=== PATIENT | male | born 1935 | race African-American/Black ===

== ENCOUNTER → 2018-09-05 | Outpatient (CLI) | payer OTHER ==
[2015-07-03 11:59] VITALS: BP 147/86
[~2018-09-05] MED LIST: LOSA100T14 PO; MELO7.5T29 PO
--- NOTE | 2018-09-05 15:09 | CARD ---
MR#: [id number] Date of Study: 09/05/2018 Ordering Physician: CHARLES DUFF, Referring Physician: CHARLES DUFF, Tech: Allie Buitrago APPROVED REPORT EXAM: Two-dimensional and M-mode echocardiogram with Doppler and color Doppler. Other Information Quality : AverageHR: 72bpm INDICATION Atrial Fibrillation RISK FACTORS Hypertension Hyperlipidemia 2D DIMENSIONS RVDd2.5 (2.9-3.5cm)Left Atrium(2D)3.4 (1.6-4.0cm) IVSd1.2 (0.7-1.1cm)Aortic Root(2D)3.4 (2.0-3.7cm) LVDd5.6 (3.9-5.9cm)LVOT Diameter2.3 (1.8-2.4cm) PWd1.2 (0.7-1.1cm)LVDs4.5 (2.5-4.0cm) FS (%) 19.0 %SV59.4 ml LVEF(%)38.8 (>50%) Aortic Valve AoV Peak Eulogio.134.9cm/sAoV VTI20.6cm AO Peak GR.7.3mmHgLVOT Peak Eulogio.72.4cm/s LVOT VTI 11.93cmAO Mean GR.3mmHg SANAM (VMAX)1.29wa9DST (VTI)2.38cm2 AI P 1/2 [id number] Pulmonary Valve PV Peak Iozfawpn64.6cm/sPV Peak Grad.3mmHg Tricuspid Valve TR P. [id number]/sRAP [id number] TR Peak Gr.76qeVlRPST04soWc Pulmonary Vein S1 Gdeqkryn99.8cm/sD2 Djhilwea97.2cm/s PVa [id number] LEFT VENTRICLE The left ventricle is normal size. There is borderline to mild concentric left ventricular hypertroph y. The systolic function is mildly impaired. The Ejection Fraction is 40-45%. Difficult to estimate d ue to afib. There is global hypokinesis of the left ventricle. Tissue Doppler imaging reveals moderat e left ventricular diastolic dysfunction. RIGHT VENTRICLE The right ventricle is mildly dilated. There is normal right ventricular wall thickness. The right ve ntricular systolic function is normal. ATRIA The left atrium is mildly dilated. The right atrium is mildly dilated. The interatrial septum is inta ct with no evidence for an atrial septal defect or patent foramen ovale as noted on 2-D or Doppler im aging. AORTIC VALVE The aortic valve is normal in structure and function. Doppler and Color Flow revealed trace aortic re gurgitation. There is no significant aortic valvular stenosis. MITRAL VALVE The mitral valve is normal in structure and function. There is no mitral valve stenosis. Doppler and Color-flow revealed trace mitral regurgitation. TRICUSPID VALVE The tricuspid valve is not well visualized. Doppler and Color Flow revealed trace to mild tricuspid r egurgitation. There is no tricuspid valve stenosis. PULMONIC VALVE The pulmonic valve is not well visualized. Doppler and Color Flow revealed trace pulmonic valvular re gurgitation. GREAT VESSELS The aortic root is normal in size. The IVC is dilated and collapses <50% with inspiration. PERICARDIAL EFFUSION There is no evidence of significant pericardial effusion. Critical Notification Critical Value: No <Conclusion> The systolic function is mildly impaired. The Ejection Fraction is 40-45%. Difficult to estimate due to afib. There is global hypokinesis of the left ventricle. The right ventricle is mildly dilated. Signed by : Charles Duff, Electronically Approved : 09/05/2018 15:08:49
== END | disposition home or self-care (01) ==
LOC: ECHO 12:40
PROVIDERS: ATTEND Internal Medicine Cardiovascular Disease
DX: I11.9 Hypertensive heart disease without heart failure (principal); I48.91 Unspecified atrial fibrillation; E78.5 Hyperlipidemia, unspecified; M19.90 Unspecified osteoarthritis, unspecified site; Z96.641 Presence of right artificial hip joint; Z96.653 Presence of artificial knee joint, bilateral; M54.9 Dorsalgia, unspecified; G89.29 Other chronic pain; R22.43 Localized swelling, mass and lump, lower limb, bilateral
CPT/HCPCS: 93306; 93970

== ENCOUNTER → 2019-05-02 | Outpatient (CLI) | payer OTHER ==
[2015-07-03 11:59] VITALS: BP 147/86
[~2019-05-02] MED LIST changes: +IOHEXOL 240 MG/ML 50ML VIAL. PO ONE; +IOHEXOL 300 MG/ML 100ML VIAL. IV ONE
[2019-05-02 10:22] LABS: CREATININE 1.4 mg/dL (0.7-1.3); GFR 58.6
--- NOTE | 2019-05-02 13:10 | RAD ---
PQRS Compliance statement: One or more of the following individualized dose reduction techniques were utilized for this examination: 1. Automated exposure control. 2. Adjustment of the mA and/or kV according to patient size. 3. Use of iterative reconstruction technique. Indication:Ventral hernia. TECHNIQUE: CT abdomen and pelvis with IV contrast with multiplanar reformats. COMPARISON: None FINDINGS: Heart is normal in size. No pericardial or pleural effusion. Motion artifact is seen in the lung bases limiting optimal evaluation. Liver, spleen, pancreas, adrenals within normal limits. Gallstone noted. No pericholecystic fluid or gallbladder wall thickening. Bilateral simple appearing renal cysts are seen, the largest in the right kidney measuring 9.5 x 8.3 cm and on the left side measuring 4.8 x 2.6 cm. Couple of nonobstructing left renal stones are seen, the largest measuring 3 mm. Right parapelvic cysts are seen. No enlarged retroperitoneal or pelvic adenopathy. No free pelvic fluid or ascites. Status post prostatectomy and evidence of bilateral pelvic sidewall lymph node dissection. Descending colon diverticulosis. No bowel obstruction. Urinary bladder is suboptimally evaluated due to streak artifact from pelvic metallic surgical clips. Epigastric ventral omental fat-containing midline abdominal wall hernia with neck of the hernia measuring 3.4 cm. The hernia sac approximately measures 10.0 x 4.0 cm. Severe left hip joint osteoarthritis. No suspicious bony lesion. IMPRESSION: 1. Midline ventral abdominal wall hernia containing omental fat. 2. Nonobstructing left renal stones. Bilateral simple appearing renal cysts. Right-sided pelvocaliectasis versus parapelvic cysts. 3. Cholelithiasis without imaging evidence of acute cholecystitis. Electronically signed by: Drew Norris DO (05/02/2019 1:07 PM) [facility]
== END | disposition home or self-care (01) ==
LOC: CT 09:33
PROVIDERS: ATTEND Specialist
DX: K43.9 Ventral hernia without obstruction or gangrene (principal); K80.20 Calculus of gallbladder without cholecystitis without obstruction; N20.0 Calculus of kidney; K57.30 Diverticulosis of large intestine without perforation or abscess without bleeding; M16.12 Unilateral primary osteoarthritis, left hip
CPT/HCPCS: 36415; 74177; 82565; Q9966; Q9967

== ENCOUNTER 2019-05-25 08:28 | Inpatient (IN) | payer OTHER ==
[~2019-05-25] VITALS: Ht 172.7 cm; Wt 111.1 kg
[~2019-05-25 08:28] MED LIST changes: -IOHEXOL 240 MG/ML 50ML VIAL. PO ONE; -IOHEXOL 300 MG/ML 100ML VIAL. IV ONE
--- NOTE | 2019-05-25 09:06 | PHYS DOC ---
Past Medical History Past Medical History: Cancer, GI Bleed, High Cholesterol, Hypertension Additional Past Medical Histor: PROSTATE CANCER Past Surgical History: Hip Replacement, Knee Replacement Additional Past Surgical Histo: PROSTATECTOMY Alcohol Use: None Drug Use: None Adult General Chief Complaint Chief Complaint: RECTAL BLEED [facility] HPI Patient is a 83 year old male with a history of hypertension, hemorrhoids, GI bleed, A. fib on Prasugel who presents to the ED today complaining of rectal bleeding during bowel movements that began 4 days ago. Patient denies any ab dominal pain, nausea, vomiting, bloody stools. PCP Dr. Ana Beaver Review of Systems Review of Systems Constitutional: Denies fever or chills [] Eyes: Denies change in visual acuity, redness, or eye pain [] HENT: Denies nasal congestion or sore throat [] Respiratory: Denies cough or shortness of breath [] Cardiovascular: No additional information not addressed in HPI [] GI: Reports rectal bleeding. Denies abdominal pain, nausea, vomiting, bloody stools or diarrhea [] : Denies dysuria or hematuria [] Musculoskeletal: Denies back pain or joint pain [] Integument: Denies rash or skin lesions [] Neurologic: Denies headache, focal weakness or sensory changes [] All other systems were reviewed and found to be within normal limits, except as documented in this note. Current Medications Current Medications Current Medications Medications (Trade) Dose Ordered Sig/Joseph Start Time Stop Time Status Last Admin Dose Admin Info (CONTRAST GIVEN -- Rx MONITORING) 1 each PRN DAILY PRN 05/25/19 09:45 05/27/19 09:44 Iohexol (Omnipaque 300 Mg/ml) 60 ml 1X ONCE 05/25/19 10:00 05/25/19 10:01 DC 05/25/19 09:41 60 ML Pantoprazole Sodium (PROTONIX VIAL for IV PUSH) 40 mg 1X ONCE 05/25/19 09:15 05/25/19 09:16 DC 05/25/19 09:14 40 MG Allergies Allergies Allergies Coded Allergies Type Severity Reaction Last Updated Verified No Known Drug Allergies 07/03/15 No Physical Exam Physical Exam Constitutional: Well developed, well nourished, no acute distress, non-toxic appearance. [] HENT: Normocephalic, atraumatic, bilateral external ears normal, oropharynx moist, no oral exudates, nose normal. [] Eyes: PERRLA, EOMI, conjunctiva normal, no discharge. [] Neck: Normal range of motion, no tenderness, supple, no stridor. [] Cardiovascular:Heart rate regular rhythm, no murmur [] Lungs & Thorax: Bilateral breath sounds clear to auscultation [] Abdomen: Rounded abdomen with a reducible ventral hernia. Bowel sounds normal, soft, no tenderness, no masses, no pulsatile masses. [] Rectal exam External rectum appears normal, no palpable masses in the rectal region. Black tarry stool noted during rectal exam. Skin: Warm, dry, no erythema, no rash. [] Back: No tenderness, no CVA tenderness. [] Extremities: No tenderness, no cyanosis, no clubbing, ROM intact, no edema. [] Neurologic: Alert and oriented X 3, normal motor function, normal sensory function, no focal deficits noted. [] Psychologic: Affect normal, judgement normal, mood normal. [] Current Patient Data Vital Signs Vital Signs Date Time Temp Pulse Resp B/P (MAP) Pulse Ox O2 Delivery O2 Flow Rate FiO2 05/25/19 09:42 63 16 167/80 (109) 05/25/19 09:14 97 05/25/19 08:44 97.9 Room Air 97.9 Lab Values Laboratory Tests Test 05/25/19 08:55 05/25/19 09:05 05/25/19 10:50 Stool Occult Blood Positive (NEG) White Blood Count 5.4 x10^3/uL (4.0-11.0) Red Blood Count 4.46 x10^6/uL (4.30-5.70) Hemoglobin 10.2 g/dL (13.0-17.5) L Hematocrit 31.5 % (39.0-53.0) L Mean Corpuscular Volume 71 fL (79-100) L Mean Corpuscular Hemoglobin 23 pg (25-35) L Mean Corpuscular Hemoglobin Concent 33 g/dL (31-37) Red Cell Distribution Width 16.9 % (11.5-14.5) H Platelet Count 158 x10^3/uL (140-400) Neutrophils (%) (Auto) 67 % (31-73) Lymphocytes (%) (Auto) 20 % (24-48) L Monocytes (%) (Auto) 11 % (0-9) H Eosinophils (%) (Auto) 2 % (0-3) Basophils (%) (Auto) 0 % (0-3) Neutrophils # (Auto) 3.6 x10^3/uL (1.8-7.7) Lymphocytes # (Auto) 1.1 x10^3/uL (1.0-4.8) Monocytes # (Auto) 0.6 x10^3/uL (0.0-1.1) Eosinophils # (Auto) 0.1 x10^3/uL (0.0-0.7) Basophils # (Auto) 0.0 x10^3/uL (0.0-0.2) Platelet Estimate Adequate (ADEQUATE) Hypochromasia Present Anisocytosis Present Ovalocytes Present Prothrombin Time 13.3 SEC (11.7-14.0) Prothrombin Time INR 1.0 (0.8-1.1) Activated Partial Thromboplast Time 31 SEC (24-38) Sodium Level 142 mmol/L (136-145) Potassium Level 4.2 mmol/L (3.5-5.1) Chloride Level 109 mmol/L (98-107) H Carbon Dioxide Level 24 mmol/L (21-32) Anion Gap 9 (6-14) Blood Urea Nitrogen 26 mg/dL (8-26) Creatinine 1.4 mg/dL (0.7-1.3) H Estimated GFR (Cockcroft-Gault) 58.6 BUN/Creatinine Ratio 19 (6-20) Glucose Level 113 mg/dL (70-99) H Calcium Level 8.6 mg/dL (8.5-10.1) Total Bilirubin 0.5 mg/dL (0.2-1.0) Aspartate Amino Transferase (AST) 24 U/L (15-37) Alanine Aminotransferase (ALT) 17 U/L (16-63) Alkaline Phosphatase 78 U/L (46-116) Total Protein 6.8 g/dL (6.4-8.2) Albumin 3.3 g/dL (3.4-5.0) L Albumin/Globulin Ratio 0.9 (1.0-1.7) L Lipase 159 U/L (73-393) Urine Collection Type Unknown Urine Color Yellow Urine Clarity Clear Urine pH 6.5 Urine Specific [place] 1.025 Urine Protein Negative mg/dL (NEG-TRACE) Urine Glucose (UA) Negative mg/dL (NEG) Urine Ketones (Stick) Negative mg/dL (NEG) Urine Blood Negative (NEG) Urine Nitrite Negative (NEG) Urine Bilirubin Negative (NEG) Urine Urobilinogen Dipstick 0.2 mg/dL (0.2 mg/dL) Urine Leukocyte Esterase Negative (NEG) Urine RBC 0 /HPF (0-2) Urine WBC Occ /HPF (0-4) Urine Squamous Epithelial Cells Occ /LPF Urine Bacteria 0 /HPF (0-FEW) Laboratory Tests 05/25/19 09:05 Laboratory Tests 05/25/19 09:05 EKG EKG [] Radiology/Procedures Radiology/Procedures []PROCEDURE: CT ABD PELV W/ IV CONTRST ONLY EXAM: CT Abdomen and Pelvis with IV contrast CLINICAL HISTORY: Rectal bleeding. COMPARISON: none TECHNIQUE: Helical CT of the abdomen and pelvis was performed following the administration of intravenous contrast. Axial, coronal and sagittal reformatted images were generated. PQRS compliance statement - One or more of the following individualized dose reduction techniques were utilized for this study: 1. Automated exposure control 2. Adjustment of the mA and/or kV according to patient size 3. Use of iterative reconstruction technique FINDINGS: Lower chest: Lung bases are clear. Coronary artery calcifications are seen. Abdomen and Pelvis: No focal liver lesion. Small calcified gallstone is seen within the gallbladder. No biliary ductal dilatation. Pancreas is unremarkable. Adrenal glands are normal. Spleen is unremarkable. Symmetric nephrograms. A right upper pole 9.6 cm renal cystic lesion is seen, stable. Additional bilateral renal cysts are seen including parapelvic cysts bilaterally. Nonobstructing 7 mm calculus within the lower pole the left kidney. No hydronephrosis or hydroureter. Bladder wall thickening may be seen with cystitis. Moderate to large volume colonic stool content is seen. Appendix is not convincingly seen. No evidence for bowel obstruction. Colonic diverticula are seen. No evidence for acute diverticulitis. Fat-containing ventral abdominal hernia is seen within the superior aspect of the abdominal wall, neck measures approximately 3 cm in transverse dimension and herniated component measures approximately 10 cm in transverse dimension. Trace mesenteric engorgement. A few intermittent atherosclerotic calcifications are seen. Bones: Changes of right hip arthroplasty are seen. Left hip joint osteoarthritis. SI joint degenerative changes are also seen. Degenerative changes of the spine are seen. IMPRESSION: 1. Colonic diverticula are seen. No evidence for acute diverticulitis. 2. No evidence for bowel obstruction. 3. Bladder wall thickening may be seen with cystitis. 4. Bilateral renal cystic lesions are seen, grossly stable. 5. Prominent midline ventral abdominal hernia containing mesenteric/omental fat with mild mesenteric vascular engorgement, stable. Electronically signed by: Franklin Randall MD (05/25/2019 10:04 AM) [id number] DICTATED and SIGNED BY: FRANKLIN RANDALL MD DATE: 05/25/19 1004 Course & Med Decision Making Course & Med Decision Making Pertinent Labs and Imaging studies reviewed. (See chart for details) This is a 83-year-old male patient on Prasugrel presenting to the ED today with rectal bleeding for 4 days. Bedside fecal occult is positive. Hgb 10.2 HCT 31.5, WBC is normal, CMP with no acute findings. CT of the abdomen and pelvic is negative for any acute findings. Given Protonix IV push on arrival. Protonix iv ordered for admission. Vitals are stable with normal HR and BPs in the 160s/80s GI consulted. [address] Baker who accepted patient for admission. Dragon Disclaimer Dragon Disclaimer This electronic medical record was generated, in whole or in part, using a voice recognition dictation system. Departure Departure Impression: Primary Impression: Rectal bleeding Disposition: ADMITTED INPATIENT Condition: STABLE Referrals: YA BEAVER MD (PCP) DONA ALEJANDRA APRN May 25, 2019 09:06
[2019-05-25 09:13] LABS: FECAL OB PT POSITIVE (NEG)
[2019-05-25 09:15] LABS: BASO % 0 % (0-3); EOS # 0.1 x10^3/uL (0.0-0.7); EOS % 2 % (0-3); HEMATOCRIT 31.5 % (39.0-53.0); HEMOGLOBIN 10.2 g/dL (13.0-17.5); LYMPH # 1.1 x10^3/uL (1.0-4.8); LYMPH % 20 % (24-48); MEAN CORPUSCULAR HEMOGLOBIN 23 pg (25-35); MEAN CORPUSCULAR HGB CONC 33 g/dL (31-37); MEAN CORPUSCULAR VOLUME 71 fL (79-100); MONO # 0.6 x10^3/uL (0.0-1.1); MONO % 11 % (0-9); NEUT # 3.6 x10^3/uL (1.8-7.7); NEUT % 67 % (31-73); PLATELET COUNT 158 x10^3/uL (140-400); RED BLOOD COUNT 4.46 x10^6/uL (4.30-5.70); RED CELL DISTRIBUTION WIDTH 16.9 % (11.5-14.5); WHITE BLOOD COUNT 5.4 x10^3/uL (4.0-11.0)
[2019-05-25] MEDS ORDERED: PANTOPRAZOLE IV PUSH 40 MG VIAL. IVP ONE (09:15)
[2019-05-25 09:24] LABS: CALCIUM 8.6 mg/dL (8.5-10.1); CREATININE 1.4 mg/dL (0.7-1.3); GFR 58.6; POTASSIUM 4.2 mmol/L (3.5-5.1); PROTHROMBIN TIME PATIENT 13.3 SEC (11.7-14.0)
[2019-05-25 09:30] LABS: ALBUMIN 3.3 g/dL (3.4-5.0); ALBUMIN/GLOBULIN RATIO 0.9 (1.0-1.7); TOTAL BILIRUBIN 0.5 mg/dL (0.2-1.0); TOTAL PROTEIN 6.8 g/dL (6.4-8.2)
[2019-05-25] MEDS ORDERED: CONTRAST GIVEN. MC PRN (09:45)
[2019-05-25] MEDS ORDERED: IOHEXOL 300 MG/ML 100ML VIAL. IV ONE (10:00)
--- NOTE | 2019-05-25 10:07 | RAD ---
EXAM: CT Abdomen and Pelvis with IV contrast CLINICAL HISTORY: Rectal bleeding. COMPARISON: none TECHNIQUE: Helical CT of the abdomen and pelvis was performed following the administration of intravenous contrast. Axial, coronal and sagittal reformatted images were generated. PQRS compliance statement - One or more of the following individualized dose reduction techniques were utilized for this study: 1. Automated exposure control 2. Adjustment of the mA and/or kV according to patient size 3. Use of iterative reconstruction technique FINDINGS: Lower chest: Lung bases are clear. Coronary artery calcifications are seen. Abdomen and Pelvis: No focal liver lesion. Small calcified gallstone is seen within the gallbladder. No biliary ductal dilatation. Pancreas is unremarkable. Adrenal glands are normal. Spleen is unremarkable. Symmetric nephrograms. A right upper pole 9.6 cm renal cystic lesion is seen, stable. Additional bilateral renal cysts are seen including parapelvic cysts bilaterally. Nonobstructing 7 mm calculus within the lower pole the left kidney. No hydronephrosis or hydroureter. Bladder wall thickening may be seen with cystitis. Moderate to large volume colonic stool content is seen. Appendix is not convincingly seen. No evidence for bowel obstruction. Colonic diverticula are seen. No evidence for acute diverticulitis. Fat-containing ventral abdominal hernia is seen within the superior aspect of the abdominal wall, neck measures approximately 3 cm in transverse dimension and herniated component measures approximately 10 cm in transverse dimension. Trace mesenteric engorgement. A few intermittent atherosclerotic calcifications are seen. Bones: Changes of right hip arthroplasty are seen. Left hip joint osteoarthritis. SI joint degenerative changes are also seen. Degenerative changes of the spine are seen. IMPRESSION: 1. Colonic diverticula are seen. No evidence for acute diverticulitis. 2. No evidence for bowel obstruction. 3. Bladder wall thickening may be seen with cystitis. 4. Bilateral renal cystic lesions are seen, grossly stable. 5. Prominent midline ventral abdominal hernia containing mesenteric/omental fat with mild mesenteric vascular engorgement, stable. Electronically signed by: Franklin Gomez MD (05/25/2019 10:04 AM) [id number]
[2019-05-25 10:49] LABS: ANISOCYTOSIS PRESENT; HYPOCHROMIA PRESENT; OVALOCYTES PRESENT; PLT ESTIMATE ADEQUATE (ADEQUATE)
--- NOTE | 2019-05-25 10:53 | PDOC1 ---
History and Physical Date of Admission Date of Admission DATE: 05/25/19 TIME: 10:53 Identification/Chief Complaint Chief Complaint SEEN IN ER , 83 year old male with a history of hypertension, hemorrhoids, GI bleed, A. fib on Prasugel presents to the ED today complaining of rectal bleeding during bowel movements that began 4 days ago. Past Medical History Past Medical History Past Medical History Past Medical History Past Medical History: Cancer, GI Bleed, High Cholesterol, Hypertension Additional Past Medical Histor: PROSTATE CANCER Past Surgical History: Hip Replacement, Knee Replacement Additional Past Surgical Histo: PROSTATECTOMY Alcohol Use: None Drug Use: None fhx obesity Family History Family History: Hypertension Social History Smoke: No ALCOHOL: none Drugs: None Current Problem List Problem List Problems Medical Problems: (1) Rectal bleeding Status: Acute Current Medications Current Medications Current Medications Pantoprazole Sodium (PROTONIX VIAL for IV PUSH) 40 mg 1X ONCE IVP Last administered on 05/25/19at 09:14; Start 05/25/19 at 09:15; Stop 05/25/19 at 09:16; Status DC Iohexol (Omnipaque 300 Mg/ml) 60 ml 1X ONCE IV Last administered on 05/25/19at 09:41; Start 05/25/19 at 10:00; Stop 05/25/19 at 10:01; Status DC Info (CONTRAST GIVEN -- Rx MONITORING) 1 each PRN DAILY PRN MC SEE COMMENTS; Start 05/25/19 at 09:45; Stop 05/27/19 at 09:44 Active Scripts Active Reported Meloxicam 7.5 Mg Tablet 1 Tab PO DAILY Losartan Potassium 100 Mg Tablet 1 Tab PO DAILY Allergies Allergies: Coded Allergies: No Known Drug Allergies (Unverified , 07/03/15) ROS Review of System Review of Systems Review of Systems Constitutional: Denies fever or chills [] Eyes: Denies change in visual acuity, redness, or eye pain [] HENT: Denies nasal congestion or sore throat [] Respiratory: Denies cough or shortness of breath [] Cardiovascular: No additional information not addressed in HPI [] GI: Reports rectal bleeding. Denies abdominal pain, nausea, vomiting,POS bloody stools NO diarrhea [] : Denies dysuria or hematuria [] Musculoskeletal: Denies back pain or joint pain [] Integument: Denies rash or skin lesions [] Neurologic: Denies headache, focal weakness or sensory changes [] 14 PT systems were reviewed and found to be within normal limits, except as documented Physical Exam Physical Exam Physical Exam Physical Exam Constitutional: Well developed, well nourished, no acute distress, non-toxic appearance. [] HENT: Normocephalic, atraumatic, bilateral external ears normal, oropharynx moist, no oral exudates, nose normal. [] Eyes: PERRLA, EOMI, conjunctiva normal, no discharge. [] Neck: Normal range of motion, no tenderness, supple, no stridor. [] Cardiovascular:Heart rate regular rhythm, no murmur [] Lungs & Thorax: Bilateral breath sounds clear to auscultation [] Abdomen: Rounded abdomen with a reducible ventral hernia. Bowel sounds normal, soft, no tenderness, no masses, no pulsatile masses. [] Rectal exam External rectum appears normal, no palpable masses in the rectal region. Black tarry stool noted during rectal exam. 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 [] Back: No tenderness, no CVA tenderness. [] Extremities: No tenderness, no cyanosis, no clubbing, ROM intact, no edema. [] Neurologic: Alert and oriented X 3, normal motor function, normal sensory function, no focal deficits noted. [] Psychologic: Affect normal, judgement normal, mood normal. [] General: Oriented X3, Cooperative, No acute distress HEENT: Atraumatic, EOMI Heart: RRR PELVIC: Examination not indicated Extremities: No cyanosis Neuro: Normal speech, Cranial nerves 3-12 NL Psych/Mental Status: Mental status NL, Mood NL Vitals Vitals Vital Signs Date Time Temp Pulse Resp B/P (MAP) Pulse Ox O2 Delivery O2 Flow Rate FiO2 05/25/19 09:42 63 16 167/80 (109) 05/25/19 09:14 97 05/25/19 08:44 97.9 Room Air 97.9 Labs Labs Laboratory Tests Test 05/25/19 08:55 05/25/19 09:05 Stool Occult Blood Positive (NEG) White Blood Count 5.4 x10^3/uL (4.0-11.0) Red Blood Count 4.46 x10^6/uL (4.30-5.70) Hemoglobin 10.2 g/dL (13.0-17.5) Hematocrit 31.5 % (39.0-53.0) Mean Corpuscular Volume 71 fL (79-100) Mean Corpuscular Hemoglobin 23 pg (25-35) Mean Corpuscular Hemoglobin Concent 33 g/dL (31-37) Red Cell Distribution Width 16.9 % (11.5-14.5) Platelet Count 158 x10^3/uL (140-400) Neutrophils (%) (Auto) 67 % (31-73) Lymphocytes (%) (Auto) 20 % (24-48) Monocytes (%) (Auto) 11 % (0-9) Eosinophils (%) (Auto) 2 % (0-3) Basophils (%) (Auto) 0 % (0-3) Neutrophils # (Auto) 3.6 x10^3/uL (1.8-7.7) Lymphocytes # (Auto) 1.1 x10^3/uL (1.0-4.8) Monocytes # (Auto) 0.6 x10^3/uL (0.0-1.1) Eosinophils # (Auto) 0.1 x10^3/uL (0.0-0.7) Basophils # (Auto) 0.0 x10^3/uL (0.0-0.2) Platelet Estimate Adequate (ADEQUATE) Hypochromasia Present Anisocytosis Present Ovalocytes Present Prothrombin Time 13.3 SEC (11.7-14.0) Prothromb Time International Ratio 1.0 (0.8-1.1) Activated Partial Thromboplast Time 31 SEC (24-38) Sodium Level 142 mmol/L (136-145) Potassium Level 4.2 mmol/L (3.5-5.1) Chloride Level 109 mmol/L (98-107) Carbon Dioxide Level 24 mmol/L (21-32) Anion Gap 9 (6-14) Blood Urea Nitrogen 26 mg/dL (8-26) Creatinine 1.4 mg/dL (0.7-1.3) Estimated GFR (Cockcroft-Gault) 58.6 BUN/Creatinine Ratio 19 (6-20) Glucose Level 113 mg/dL (70-99) Calcium Level 8.6 mg/dL (8.5-10.1) Total Bilirubin 0.5 mg/dL (0.2-1.0) Aspartate Amino Transf (AST/SGOT) 24 U/L (15-37) Alanine Aminotransferase (ALT/SGPT) 17 U/L (16-63) Alkaline Phosphatase 78 U/L (46-116) Total Protein 6.8 g/dL (6.4-8.2) Albumin 3.3 g/dL (3.4-5.0) Albumin/Globulin Ratio 0.9 (1.0-1.7) Lipase 159 U/L (73-393) Laboratory Tests Test 05/25/19 08:55 05/25/19 09:05 Stool Occult Blood Positive (NEG) White Blood Count 5.4 x10^3/uL (4.0-11.0) Red Blood Count 4.46 x10^6/uL (4.30-5.70) Hemoglobin 10.2 g/dL (13.0-17.5) Hematocrit 31.5 % (39.0-53.0) Mean Corpuscular Volume 71 fL (79-100) Mean Corpuscular Hemoglobin 23 pg (25-35) Mean Corpuscular Hemoglobin Concent 33 g/dL (31-37) Red Cell Distribution Width 16.9 % (11.5-14.5) Platelet Count 158 x10^3/uL (140-400) Neutrophils (%) (Auto) 67 % (31-73) Lymphocytes (%) (Auto) 20 % (24-48) Monocytes (%) (Auto) 11 % (0-9) Eosinophils (%) (Auto) 2 % (0-3) Basophils (%) (Auto) 0 % (0-3) Neutrophils # (Auto) 3.6 x10^3/uL (1.8-7.7) Lymphocytes # (Auto) 1.1 x10^3/uL (1.0-4.8) Monocytes # (Auto) 0.6 x10^3/uL (0.0-1.1) Eosinophils # (Auto) 0.1 x10^3/uL (0.0-0.7) Basophils # (Auto) 0.0 x10^3/uL (0.0-0.2) Platelet Estimate Adequate (ADEQUATE) Hypochromasia Present Anisocytosis Present Ovalocytes Present Prothrombin Time 13.3 SEC (11.7-14.0) Prothromb Time International Ratio 1.0 (0.8-1.1) Activated Partial Thromboplast Time 31 SEC (24-38) Sodium Level 142 mmol/L (136-145) Potassium Level 4.2 mmol/L (3.5-5.1) Chloride Level 109 mmol/L (98-107) Carbon Dioxide Level 24 mmol/L (21-32) Anion Gap 9 (6-14) Blood Urea Nitrogen 26 mg/dL (8-26) Creatinine 1.4 mg/dL (0.7-1.3) Estimated GFR (Cockcroft-Gault) 58.6 BUN/Creatinine Ratio 19 (6-20) Glucose Level 113 mg/dL (70-99) Calcium Level 8.6 mg/dL (8.5-10.1) Total Bilirubin 0.5 mg/dL (0.2-1.0) Aspartate Amino Transf (AST/SGOT) 24 U/L (15-37) Alanine Aminotransferase (ALT/SGPT) 17 U/L (16-63) Alkaline Phosphatase 78 U/L (46-116) Total Protein 6.8 g/dL (6.4-8.2) Albumin 3.3 g/dL (3.4-5.0) Albumin/Globulin Ratio 0.9 (1.0-1.7) Lipase 159 U/L (73-393) Images Images PATHOLOGY REPORT * * * * * * * * FINAL DIAGNOSIS: A. Colon biopsy, proximal transverse colon: - Tubular adenoma. B. Colon biopsies, cecal polyp: - Tubular adenoma. C. Colon biopsy, descending colon polyp: - Tubular adenoma. COMMENT: There is no high-grade dysplasia or evidence of malignancy. (JPM:; d/t: 07/03/2015) Tricuspid Valve TR P. Velocity 280cm/s RAP ESTIMATE 10mmHg TR Peak Gr. 31mmHg RVSP 41mmHg Pulmonary Vein S1 Velocity 37.8cm/s D2 Velocity 80.2cm/s PVa duration 153msec LEFT VENTRICLE The left ventricle is normal size. There is borderline to mild concentric left ventricular hypertrophy. The systolic function is mildly impaired. The Ejection Fraction is 40-45%. Difficult to estimate due to afib. There is global hypokinesis of the left ventricle. Tissue Doppler imaging reveals moderate left ventricular diastolic dysfunction. RIGHT VENTRICLE The right ventricle is mildly dilated. There is normal right ventricular wall thickness. The right ventricular systolic function is normal. ATRIA The left atrium is mildly dilated. The right atrium is mildly dilated. The interatrial septum is intact with no evidence for an atrial septal defect or patent foramen ovale as noted on 2-D or Doppler imaging. AORTIC VALVE The aortic valve is normal in structure and function. Doppler and Color Flow revealed trace aortic regurgitation. There is no significant aortic valvular stenosis. MITRAL VALVE The mitral valve is normal in structure and function. There is no mitral valve stenosis. Doppler and Color-flow revealed trace mitral regurgitation. TRICUSPID VALVE The tricuspid valve is not well visualized. Doppler and Color Flow revealed trace to mild tricuspid regurgitation. There is no tricuspid valve stenosis. PULMONIC VALVE The pulmonic valve is not well visualized. Doppler and Color Flow revealed trace pulmonic valvular regurgitation. GREAT VESSELS The aortic root is normal in size. The IVC is dilated and collapses <50% with inspiration. PERICARDIAL EFFUSION There is no evidence of significant pericardial effusion. Critical Notification Critical Value: No <Conclusion> The systolic function is mildly impaired. The Ejection Fraction is 40-45%. Difficult to estimate due to afib. There is global hypokinesis of the left ventricle. The right ventricle is mildly dilated. Signed by : Sin Duff, Electronically Approved : 09/05/2018 15:08:49 VTE Prophylaxis Ordered VTE Prophylaxis Devices: No VTE Pharmacological Prophylaxi: Yes Assessment/Plan Assessment/Plan IMPRESSION RECTAL BLEEDING, HX TUBULAR ADENOMA 2014 COLONOSCOPY A-FIB RECENT ECHO, 10/04 systolic function is mildly impaired. The Ejection Fraction is 40-45%. MORBID OBESITY HX PROSTATE CA MICROCYTIC ANEMIA PLAN ADMIT CONSULT GI CONSULT CARDIOLOGY SERIAL H/H FE PANEL 57 MIN PT EXAM, CHART REVIEW, > 50% OF TIME SPENT WITH EXAM, CHART REVIEW, PT CARE COORDINATION VÍCTOR HADDAD MD May 25, 2019 10:53
[2019-05-25 11:10] LABS: BILIRUBIN,URINE NEGATIVE (NEG); CLARITY,URINE CLEAR; COLOR,URINE YELLOW; NITRITE,URINE NEGATIVE (NEG); PH,URINE 6.5; PROTEIN,URINE NEGATIVE (NEG-TRACE); UROBILINOGEN,URINE 0.2 mg/dL (0.2 mg/dL)
[2019-05-25 11:11] LABS: BACTERIA,URINE 0 /HPF (0-FEW); RBC,URINE 0 /HPF (0-2); SQUAMOUS EPITHELIAL CELL,UR OCC /LPF; WBC,URINE OCC /HPF (0-4)
[2019-05-25] MEDS ORDERED: PANTOPRAZOLE SODIUM IV DRIP 80 MG in IV NORMAL SALINE 100ML 100 ML IV SCH (11:30)
[2019-05-25] MEDS ORDERED: ONDANSETRON PF 4 MG/2 ML VIAL. IV PRN (11:30)
[2019-05-25] MEDS ORDERED: MORPHINE SULFATE 4 MG/ML VIAL. IV PRN (11:30)
--- NOTE | 2019-05-25 13:14 | PDOC2 ---
GI CONSULT Reason For Consult: GI bleeding HPI: HPI: 83 y/o male in the ER who we were asked to see for GI bleeding. He is currently eating lunch. Strained to have a stool on Wednesday, noted some red blood w/ stool. Since then, stool has been soft and looked black with reddish pink color surrounding it. Says on Effient for A Fib (? - denies CAD). Occasionally uses ibuprofen for back pain. No n/v, reflux/heartburn, diarrhea, hematemesis, change in appetite, or weight loss. Occasional dysphagia felt in midchest w/ solid foods - cleared w/ water. Occasional lower abd pain. Hgb 10.2, MCV 71, RDW 16.9, Cr 1.4, fecal occult positive. Normal plt, INR, and BUN. CT w/ cholelithiasis, moderate to large stool, diverticulosis, and ventral hernia. Colonoscopy [place] [address] Horta - can see pathology report w/ three adenomatous polyps (descending, transverse, and cecum). says at some point he had an EGD w/ dilation - unclear where - ?[facility]. No GB, liver, pancreas, or PUD history. Supposed to have hernia repair next month w/ Dr. Medina. PMH: PMH: A Fib, HTN, back pain/OA, prostate cancer, nephrolithiasis right hip surgery, bilateral knee surgeries, prostatectomy FH: Family History: Cancer (siblings - breast, colon) Social History: Smoke: No ALCOHOL: none Drugs: None ROS: GEN: +sweats HEENT: Denies blurred vision, sore throat CV: Denies chest pain RESP: Denies shortness of air, cough GI: Per HPI : Denies hematuria, dysuria ENDO: Denies weight changes NEURO: Denies confusion, dizziness MSK: Denies weakness, joint pain/swelling SKIN: Denies jaundice, pruritus Vitals: Vitals: Vital Signs Date Time Temp Pulse Resp B/P (MAP) Pulse Ox O2 Delivery O2 Flow Rate FiO2 05/25/19 12:12 66 160/83 (108) 98 05/25/19 10:12 16 05/25/19 08:44 97.9 Room Air 97.9 Labs: Labs: Laboratory Tests Test 05/25/19 08:55 05/25/19 09:05 8/8/19 10:50 Stool Occult Blood Positive (NEG) White Blood Count 5.4 x10^3/uL (4.0-11.0) Red Blood Count 4.46 x10^6/uL (4.30-5.70) Hemoglobin 10.2 g/dL (13.0-17.5) Hematocrit 31.5 % (39.0-53.0) Mean Corpuscular Volume 71 fL (79-100) Mean Corpuscular Hemoglobin 23 pg (25-35) Mean Corpuscular Hemoglobin Concent 33 g/dL (31-37) Red Cell Distribution Width 16.9 % (11.5-14.5) Platelet Count 158 x10^3/uL (140-400) Neutrophils (%) (Auto) 67 % (31-73) Lymphocytes (%) (Auto) 20 % (24-48) Monocytes (%) (Auto) 11 % (0-9) Eosinophils (%) (Auto) 2 % (0-3) Basophils (%) (Auto) 0 % (0-3) Neutrophils # (Auto) 3.6 x10^3/uL (1.8-7.7) Lymphocytes # (Auto) 1.1 x10^3/uL (1.0-4.8) Monocytes # (Auto) 0.6 x10^3/uL (0.0-1.1) Eosinophils # (Auto) 0.1 x10^3/uL (0.0-0.7) Basophils # (Auto) 0.0 x10^3/uL (0.0-0.2) Platelet Estimate Adequate (ADEQUATE) Hypochromasia Present Anisocytosis Present Ovalocytes Present Prothrombin Time 13.3 SEC (11.7-14.0) Prothromb Time International Ratio 1.0 (0.8-1.1) Activated Partial Thromboplast Time 31 SEC (24-38) Sodium Level 142 mmol/L (136-145) Potassium Level 4.2 mmol/L (3.5-5.1) Chloride Level 109 mmol/L (98-107) Carbon Dioxide Level 24 mmol/L (21-32) Anion Gap 9 (6-14) Blood Urea Nitrogen 26 mg/dL (8-26) Creatinine 1.4 mg/dL (0.7-1.3) Estimated GFR (Cockcroft-Gault) 58.6 BUN/Creatinine Ratio 19 (6-20) Glucose Level 113 mg/dL (70-99) Calcium Level 8.6 mg/dL (8.5-10.1) Total Bilirubin 0.5 mg/dL (0.2-1.0) Aspartate Amino Transf (AST/SGOT) 24 U/L (15-37) Alanine Aminotransferase (ALT/SGPT) 17 U/L (16-63) Alkaline Phosphatase 78 U/L (46-116) Total Protein 6.8 g/dL (6.4-8.2) Albumin 3.3 g/dL (3.4-5.0) Albumin/Globulin Ratio 0.9 (1.0-1.7) Lipase 159 U/L (73-393) Urine Collection Type Unknown Urine Color Yellow Urine Clarity Clear Urine pH 6.5 Urine Specific [place] 1.025 Urine Protein Negative mg/dL (NEG-TRACE) Urine Glucose (UA) Negative mg/dL (NEG) Urine Ketones (Stick) Negative mg/dL (NEG) Urine Blood Negative (NEG) Urine Nitrite Negative (NEG) Urine Bilirubin Negative (NEG) Urine Urobilinogen Dipstick 0.2 mg/dL (0.2 mg/dL) Urine Leukocyte Esterase Negative (NEG) Urine RBC 0 /HPF (0-2) Urine WBC Occ /HPF (0-4) Urine Squamous Epithelial Cells Occ /LPF Urine Bacteria 0 /HPF (0-FEW) Allergies: Coded Allergies: No Known Drug Allergies (Unverified , 07/03/15) Medications: Current Medications Medications (Trade) Dose Ordered Sig/Joseph Route PRN Reason Start Time Stop Time Status Last Admin Dose Admin Pantoprazole Sodium (PROTONIX VIAL for IV PUSH) 40 mg 1X ONCE IVP 05/25/19 09:15 05/25/19 09:16 DC 05/25/19 09:14 Iohexol (Omnipaque 300 Mg/ml) 60 ml 1X ONCE IV 05/25/19 10:00 05/25/19 10:01 DC 05/25/19 09:41 Pantoprazole Sodium 80 mg/ Sodium Chloride 100 ml @ 10 mls/hr Q10H IV 05/25/19 11:30 05/25/19 11:53 Imaging: Imaging: CT A/P FINDINGS: Lower chest: Lung bases are clear. Coronary artery calcifications are seen. Abdomen and Pelvis: No focal liver lesion. Small calcified gallstone is seen within the gallbladder. No biliary ductal dilatation. Pancreas is unremarkable. Adrenal glands are normal. Spleen is unremarkable. Symmetric nephrograms. A right upper pole 9.6 cm renal cystic lesion is seen, stable. Additional bilateral renal cysts are seen including parapelvic cysts bilaterally. Nonobstructing 7 mm calculus within the lower pole the left kidney. No hydronephrosis or hydroureter. Bladder wall thickening may be seen with cystitis. Moderate to large volume colonic stool content is seen. Appendix is not convincingly seen. No evidence for bowel obstruction. Colonic diverticula are seen. No evidence for acute diverticulitis. Fat-containing ventral abdominal hernia is seen within the superior aspect of the abdominal wall, neck measures approximately 3 cm in transverse dimension and herniated component measures approximately 10 cm in transverse dimension. Trace mesenteric engorgement. A few intermittent atherosclerotic calcifications are seen. Bones: Changes of right hip arthroplasty are seen. Left hip joint osteoarthritis. SI joint degenerative changes are also seen. Degenerative changes of the spine are seen. IMPRESSION: 1. Colonic diverticula are seen. No evidence for acute diverticulitis. 2. No evidence for bowel obstruction. 3. Bladder wall thickening may be seen with cystitis. 4. Bilateral renal cystic lesions are seen, grossly stable. 5. Prominent midline ventral abdominal hernia containing mesenteric/omental fat with mild mesenteric vascular engorgement, stable. PE: GEN: NAD HEENT: Atraumatic, PERRL LUNGS: CTAB HEART: RRR ABD: NABS, S/ND/NT, ventral hernia right upper mid abd EXTREMITY: No edema SKIN: No rashes, no jaundice NEURO/PSYCH: A & O �3 A/P: A/P: Hematochezia/melena Microcytic anemia, fecal occult positive Constipation CRC screen, h/o adenomatous polyps Diverticulosis Cholelithiasis HTN H/o A Fib ?w/ antiplatelet use NSAID use -- Eating a regular diet on a PPI drip. Note iron profile was ordered. Reviewed w/ Propeck - observe on full liquids overnight and monitor labs - consider bleeding scan if recurrent bleeding/drop in Hgb, unlikely UGI bleed w/ normal BUN. Will change PPI drip to PO since eating. RENETTA SMITH May 25, 2019 13:14
[2019-05-25] MEDS ORDERED: POLYETHYLENE GLYCOL 3350 17 GM PACKET. PO PRN (13:45)
[2019-05-25] MEDS ORDERED: ATOR10TA60 PO (14:17)
[2019-05-25] MEDS ORDERED: PRAS10TA9 PO (14:17)
[2019-05-25] MEDS ORDERED: AMLO5TAB10 PO (14:17)
[2019-05-25 14:30] VITALS: BP 147/66
[2019-05-25 14:33] LABS: BASO % 0 % (0-3); EOS # 0.1 x10^3/uL (0.0-0.7); EOS % 3 % (0-3); HEMATOCRIT 30.9 % (39.0-53.0); HEMOGLOBIN 10.1 g/dL (13.0-17.5); LYMPH % 20 % (24-48); MEAN CORPUSCULAR HEMOGLOBIN 23 pg (25-35); MEAN CORPUSCULAR HGB CONC 33 g/dL (31-37); MEAN CORPUSCULAR VOLUME 71 fL (79-100); MONO # 0.5 x10^3/uL (0.0-1.1); MONO % 10 % (0-9); NEUT # 3.5 x10^3/uL (1.8-7.7); NEUT % 67 % (31-73); PLATELET COUNT 153 x10^3/uL (140-400); RED BLOOD COUNT 4.38 x10^6/uL (4.30-5.70); RED CELL DISTRIBUTION WIDTH 16.3 % (11.5-14.5); WHITE BLOOD COUNT 5.2 x10^3/uL (4.0-11.0)
[2019-05-25] MEDS: amLODIPine BESYLATE 5 MG TABLET PO SCH (15:30)
[2019-05-25] MEDS ORDERED: PEG 3350/NA SULF,BICARB,CL/KCL 4,000 ML SOLUTION. PO ONE (17:30)
[2019-05-25 19:36] VITALS: BP 156/75
[2019-05-25] MEDS ORDERED: ATORVASTATIN CALCIUM 10 MG TABLET. PO SCH (21:00)
[2019-05-25 22:54] LABS: BASO % 1 % (0-3); EOS # 0.2 x10^3/uL (0.0-0.7); EOS % 3 % (0-3); HEMATOCRIT 33.9 % (39.0-53.0); HEMOGLOBIN 10.9 g/dL (13.0-17.5); LYMPH # 1.4 x10^3/uL (1.0-4.8); LYMPH % 22 % (24-48); MEAN CORPUSCULAR HEMOGLOBIN 23 pg (25-35); MEAN CORPUSCULAR HGB CONC 32 g/dL (31-37); MEAN CORPUSCULAR VOLUME 71 fL (79-100); MONO # 0.7 x10^3/uL (0.0-1.1); MONO % 10 % (0-9); NEUT # 4.3 x10^3/uL (1.8-7.7); NEUT % 65 % (31-73); PLATELET COUNT 173 x10^3/uL (140-400); RED BLOOD COUNT 4.81 x10^6/uL (4.30-5.70); RED CELL DISTRIBUTION WIDTH 16.6 % (11.5-14.5); WHITE BLOOD COUNT 6.6 x10^3/uL (4.0-11.0)
[2019-05-25 23:00] VITALS: BP 148/72
[2019-05-26 03:33] VITALS: BP 140/71
[2019-05-26 05:11] LABS: BASO % 0 % (0-3); EOS # 0.2 x10^3/uL (0.0-0.7); EOS % 3 % (0-3); HEMATOCRIT 29.7 % (39.0-53.0); HEMOGLOBIN 9.7 g/dL (13.0-17.5); LYMPH # 1.2 x10^3/uL (1.0-4.8); LYMPH % 23 % (24-48); MEAN CORPUSCULAR HEMOGLOBIN 23 pg (25-35); MEAN CORPUSCULAR HGB CONC 33 g/dL (31-37); MEAN CORPUSCULAR VOLUME 70 fL (79-100); MONO # 0.6 x10^3/uL (0.0-1.1); MONO % 11 % (0-9); NEUT # 3.3 x10^3/uL (1.8-7.7); NEUT % 63 % (31-73); PLATELET COUNT 146 x10^3/uL (140-400); RED BLOOD COUNT 4.22 x10^6/uL (4.30-5.70); RED CELL DISTRIBUTION WIDTH 16.3 % (11.5-14.5); WHITE BLOOD COUNT 5.3 x10^3/uL (4.0-11.0)
[2019-05-26 05:12] LABS: ALBUMIN 3.1 g/dL (3.4-5.0); ALBUMIN/GLOBULIN RATIO 0.9 (1.0-1.7); CALCIUM 8.4 mg/dL (8.5-10.1); CREATININE 1.3 mg/dL (0.7-1.3); GFR 63.8; POTASSIUM 4.3 mmol/L (3.5-5.1); TOTAL BILIRUBIN 0.6 mg/dL (0.2-1.0); TOTAL PROTEIN 6.4 g/dL (6.4-8.2)
[2019-05-26 07:00] VITALS: BP 131/56
[2019-05-26] MEDS ORDERED: PANTOPRAZOLE 40 MG TABLET.DR. PO SCH (07:30)
[2019-05-26] MEDS ORDERED: POLYETHYLENE GLYCOL 3350 17 GM PACKET. PO SCH (09:00)
[2019-05-26] MEDS ORDERED: LOSARTAN POTASSIUM 50 MG TABLET. PO SCH (09:00)
[2019-05-26] MEDS ORDERED: IV RINGERS,LACTATED 1000ML 1,000 ML IV ONE (10:00)
[2019-05-26] MEDS ORDERED: LIDOCAINE 2% PF 5 ML VIAL. ONE (10:25)
[2019-05-26] MEDS ORDERED: PROPOFOL 20 ML IV ONE (10:25)
--- NOTE | 2019-05-26 10:53 | PDOC4 ---
Operative Note Operative Note EGD and Colonoscopy Meds Propofol per anesthesia Pre-op dx acute blood loss anemia/ melena post-op dx non-erosive gastritis internal hemorrhoids sigmoid diverticulosis rectal polyp s/p cold snare Imp rectal bleeding- most likely secondary to diverticular bleed Plan advance diet and release home MANGO FORMAN MD May 26, 2019 10:53
[2019-05-26] MEDS: amLODIPine BESYLATE 5 MG TABLET PO SCH (11:36)
[2019-05-26 11:37] VITALS: BP 140/82
--- NOTE | 2019-05-26 12:11 | NUR ---
SS following for discharge planning. SS reviewed pt chart. Pt is from home with spouse and is currently on room air. No discharge needs noted at this time. SS will continue to follow for discharge planning.
--- NOTE | 2019-05-26 13:29 | PDOC ---
[employer] PROGRESS NOTE Chief Complaint Chief Complaint GI Bleed High Cholesterol Hypertension Prostate Caner Hip Replacement Knee Replacement History of Present Illness History of Present Illness 05/26/19 Pt seen and examined DW pt while being prepped for EGD and Colonoscopy DW RN DW GI Reviewed pt's chart Vitals/I&O Vitals/I&O: Vital Signs Date Time Temp Pulse Resp B/P (MAP) Pulse Ox O2 Delivery O2 Flow Rate FiO2 05/26/19 11:37 69 140/82 05/26/19 11:20 18 98 Room Air 05/26/19 10:50 97.8 97.8 I & O 05/25/19 05/25/19 05/26/19 14:59 22:59 06:59 Intake Total 4000 ml Output Total 300 ml 1 ml Balance -300 ml 3999 ml Physical Exam General: Oriented X3, Cooperative, No acute distress Heart: Regular rate, Normal S1, Normal S2 Lungs: Clear Abdomen: Normal bowel sounds, No tenderness Extremities: No clubbing, No cyanosis Skin: No rashes, No breakdown Labs Labs: Laboratory Tests Test 05/25/19 14:01 05/25/19 22:00 05/26/19 04:00 White Blood Count 5.2 x10^3/uL (4.0-11.0) 6.6 x10^3/uL (4.0-11.0) 5.3 x10^3/uL (4.0-11.0) Red Blood Count 4.38 x10^6/uL (4.30-5.70) 4.81 x10^6/uL (4.30-5.70) 4.22 x10^6/uL (4.30-5.70) Hemoglobin 10.1 g/dL (13.0-17.5) 10.9 g/dL (13.0-17.5) 9.7 g/dL (13.0-17.5) Hematocrit 30.9 % (39.0-53.0) 33.9 % (39.0-53.0) 29.7 % (39.0-53.0) Mean Corpuscular Volume 71 fL (79-100) 71 fL (79-100) 70 fL (79-100) Mean Corpuscular Hemoglobin 23 pg (25-35) 23 pg (25-35) 23 pg (25-35) Mean Corpuscular Hemoglobin Concent 33 g/dL (31-37) 32 g/dL (31-37) 33 g/dL (31-37) Red Cell Distribution Width 16.3 % (11.5-14.5) 16.6 % (11.5-14.5) 16.3 % (11.5-14.5) Platelet Count 153 x10^3/uL (140-400) 173 x10^3/uL (140-400) 146 x10^3/uL (140-400) Neutrophils (%) (Auto) 67 % (31-73) 65 % (31-73) 63 % (31-73) Lymphocytes (%) (Auto) 20 % (24-48) 22 % (24-48) 23 % (24-48) Monocytes (%) (Auto) 10 % (0-9) 10 % (0-9) 11 % (0-9) Eosinophils (%) (Auto) 3 % (0-3) 3 % (0-3) 3 % (0-3) Basophils (%) (Auto) 0 % (0-3) 1 % (0-3) 0 % (0-3) Neutrophils # (Auto) 3.5 x10^3/uL (1.8-7.7) 4.3 x10^3/uL (1.8-7.7) 3.3 x10^3/uL (1.8-7.7) Lymphocytes # (Auto) 1.0 x10^3/uL (1.0-4.8) 1.4 x10^3/uL (1.0-4.8) 1.2 x10^3/uL (1.0-4.8) Monocytes # (Auto) 0.5 x10^3/uL (0.0-1.1) 0.7 x10^3/uL (0.0-1.1) 0.6 x10^3/uL (0.0-1.1) Eosinophils # (Auto) 0.1 x10^3/uL (0.0-0.7) 0.2 x10^3/uL (0.0-0.7) 0.2 x10^3/uL (0.0-0.7) Basophils # (Auto) 0.0 x10^3/uL (0.0-0.2) 0.0 x10^3/uL (0.0-0.2) 0.0 x10^3/uL (0.0-0.2) Iron Level 40 ug/dL (65-175) Total Iron Binding Capacity 221 ug/dL (250-450) Iron Saturation 18 % (15-34) Sodium Level 145 mmol/L (136-145) Potassium Level 4.3 mmol/L (3.5-5.1) Chloride Level 111 mmol/L (98-107) Carbon Dioxide Level 28 mmol/L (21-32) Anion Gap 6 (6-14) Blood Urea Nitrogen 22 mg/dL (8-26) Creatinine 1.3 mg/dL (0.7-1.3) Estimated GFR (Cockcroft-Gault) 63.8 BUN/Creatinine Ratio 17 (6-20) Glucose Level 105 mg/dL (70-99) Calcium Level 8.4 mg/dL (8.5-10.1) Total Bilirubin 0.6 mg/dL (0.2-1.0) Aspartate Amino Transf (AST/SGOT) 21 U/L (15-37) Alanine Aminotransferase (ALT/SGPT) 24 U/L (16-63) Alkaline Phosphatase 74 U/L (46-116) Total Protein 6.4 g/dL (6.4-8.2) Albumin 3.1 g/dL (3.4-5.0) Albumin/Globulin Ratio 0.9 (1.0-1.7) Review of Systems Review of Systems: No c/o headache No c/o CP Assessment and Plan Assessmemt and Plan Problems Medical Problems: (1) Cholelithiasis Status: Chronic (2) Diverticulosis Status: Chronic (3) HTN (hypertension) Status: Chronic (4) Microcytic anemia Status: Chronic (5) Morbid obesity Status: Chronic (6) Rectal bleeding Status: Acute Assessment GI Bleed High Cholesterol Hypertension Prostate Caner Hip Replacement Knee Replacement Plan Trend Hgb Cardiac Monitoring Labs Home meds PT/OT DVT Prophylaxis Await EGD and colonoscopy report Comment Review of Relevant I have reviewed the following items [place] (where applicable) has been applied. Medications: Current Medications Medications (Trade) Dose Ordered Sig/Joseph Route PRN Reason Start Time Stop Time Status Last Admin Dose Admin Losartan Potassium (Cozaar) 100 mg DAILY PO 05/26/19 09:00 05/26/19 11:37 Pantoprazole Sodium (Protonix) 40 mg DAILYAC PO 05/26/19 07:30 05/26/19 11:37 Amlodipine Besylate (Norvasc) 5 mg DAILY PO 05/25/19 15:30 05/26/19 11:37 Atorvastatin Calcium (Lipitor) 10 mg QHS PO 05/25/19 21:00 05/25/19 20:33 Sodium Cl/Sod Bicarb/Potass Cl/ PEG (Golytely) 4,000 ml 1X ONCE PO 05/25/19 17:30 05/25/19 17:33 DC 05/25/19 19:10 Ringer's Solution 1,000 ml @ 75 mls/hr 1X ONCE IV 05/26/19 10:00 05/26/19 23:19 05/26/19 09:53 VERA WARREN III DO May 26, 2019 13:29
[2019-05-26] MEDS ORDERED: APIX5TAB PO (13:38)
--- NOTE | 2019-05-26 14:59 | PDOC2 ---
CONSULT Date of Consult Date of Consult DATE: 05/26/19 TIME: 14:59 Reason for Consult Reason for Consult: Atrial fibrillation Referring Physician Referring Physician: Dr. Pierson Identification/Chief Complaint Chief Complaint Melena Source Source: Chart review, Patient History of Present Illness Reason for Visit: 83-year-old male with history of atrial fibrillation presented with melena and was diagnosed with GI bleeding. Cardiology has been consulted due to his history of AF and prior treatment with prasugrel. He denied any chest pain, orthopnea/P ND, palpitations or syncope. Past Medical History Past Medical History Atrial fibrillation Hypertension Prostate cancer Hyperlipidemia Past Surgical History Past Surgical History Prostatectomy Hip replacement surgery Replacement surgery Family History Family History Negative for premature coronary artery disease Family History: Hypertension Social History No ALCOHOL: none Drugs: None Current Problem List Problem List Problems Medical Problems: (1) Cholelithiasis Status: Chronic (2) Diverticulosis Status: Chronic (3) HTN (hypertension) Status: Chronic (4) Microcytic anemia Status: Chronic (5) Morbid obesity Status: Chronic (6) Rectal bleeding Status: Acute Current Medications Current Medications Current Medications Pantoprazole Sodium (PROTONIX VIAL for IV PUSH) 40 mg 1X ONCE IVP Last administered on 05/25/19at 09:14; Start 05/25/19 at 09:15; Stop 05/25/19 at 09:16; Status DC Iohexol (Omnipaque 300 Mg/ml) 60 ml 1X ONCE IV Last administered on 05/25/19at 0 9:41; Start 05/25/19 at 10:00; Stop 05/25/19 at 10:01; Status DC Info (CONTRAST GIVEN -- Rx MONITORING) 1 each PRN DAILY PRN MC SEE COMMENTS; Start 05/25/19 at 09:45; Stop 05/27/19 at 09:44 Ondansetron HCl (Zofran) 4 mg PRN Q8HRS PRN IV NAUSEA/VOMITING; Start 05/25/19 at 11:30; Stop 05/26/19 at 11:29; Status DC Morphine Sulfate (Morphine Sulfate) 4 mg PRN Q2HR PRN IV PAIN; Start 05/25/19 at 11:30; Stop 05/26/19 at 11:29; Status DC Pantoprazole Sodium 80 mg/ Sodium Chloride 100 ml @ 10 mls/hr Q10H IV Last a dministered on 8/8/19at 11:53; Start 05/25/19 at 11:30; Stop 05/25/19 at 13:29; Status DC Losartan Potassium (Cozaar) 100 mg DAILY PO Last administered on 05/26/19 11:37; Start 05/26/19 at 09:00 Pantoprazole Sodium (Protonix) 40 mg DAILYAC PO Last administered on 05/26/19 11:37; Start 05/26/19 at 07:30 Polyethylene Glycol (miraLAX PACKET) 17 gm DAILY PO ; Start 05/26/19 at 09:00 Polyethylene Glycol (miraLAX PACKET) 17 gm PRN DAILY PRN PO CONSTIPATION; Start 05/25/19 at 13:45 Amlodipine Besylate (Norvasc) 5 mg DAILY PO Last administered on 05/26/19 11:37; Start 05/25/19 at 15:30 Atorvastatin Calcium (Lipitor) 10 mg QHS PO Last administered on 05/25/19 20:33; Start 05/25/19 at 21:00 Sodium Cl/Sod Bicarb/Potass Cl/ PEG (Golytely) 4,000 ml 1X ONCE PO Last admini stered on 05/25/19 19:10; Start 05/25/19 at 17:30; Stop 05/25/19 at 17:33; Status DC Ringer's Solution 1,000 ml @ 75 mls/hr 1X ONCE IV Last administered on 05/26/19 09:53; Start 05/26/19 at 10:00; Stop 05/26/19 at 23:19 Propofol 20 ml @ As Directed STK-MED ONCE IV ; Start 05/26/19 at 10:25; Stop 05/26/19 at 10:26; Status DC Lidocaine HCl (Lidocaine Pf 2% Vial) 5 ml STK-MED ONCE .ROUTE ; Start 05/26/19 at 10:25; Stop 05/26/19 at 10:26; Status DC Active Scripts Active Reported Eliquis (Apixaban) 5 Mg Tablet 5 Mg PO BID Amlodipine Besylate 5 Mg Tablet 5 Mg PO DAILY Atorvastatin Calcium 10 Mg Tablet 1 Tab PO QHS Losartan Potassium 100 Mg Tablet 1 Tab PO DAILY Allergies Allergies: Coded Allergies: No Known Drug Allergies (Unverified , 05/26/19) ROS PSYCHOLOGICAL ROS: No: Hallucinations Eyes: No Loss of vision HEENT: No: Epistaxis Respiratory: No: Hemoptysis Cardiovascular: No Chest Pain, No Palpitations Gastrointestinal: Yes Melena; No Vomiting Genitourinary: No Hematuria Neurological: No Seizures Skin: No Rash Physical Exam General: Alert, Oriented X3 HEENT: Atraumatic, PERRLA Lungs: Clear to auscultation Heart: Other (HR irregular) Abdomen: Soft, No tenderness Extremities: No edema Psych/Mental Status: Mood NL Vitals VITALS Vital Signs Date Time Temp Pulse Resp B/P (MAP) Pulse Ox O2 Delivery O2 Flow Rate FiO2 05/26/19 11:37 69 140/82 05/26/19 11:20 18 98 Room Air 05/26/19 10:50 97.8 97.8 Labs Labs Laboratory Tests Test 05/25/19 08:55 05/25/19 09:05 05/25/19 10:50 05/25/19 14:01 Stool Occult Blood Positive (NEG) White Blood Count 5.4 x10^3/uL (4.0-11.0) 5.2 x10^3/uL (4.0-11.0) Red Blood Count 4.46 x10^6/uL (4.30-5.70) 4.38 x10^6/uL (4.30-5.70) Hemoglobin 10.2 g/dL (13.0-17.5) 10.1 g/dL (13.0-17.5) Hematocrit 31.5 % (39.0-53.0) 30.9 % (39.0-53.0) Mean Corpuscular Volume 71 fL (79-100) 71 fL (79-100) Mean Corpuscular Hemoglobin 23 pg (25-35) 23 pg (25-35) Mean Corpuscular Hemoglobin Concent 33 g/dL (31-37) 33 g/dL (31-37) Red Cell Distribution Width 16.9 % (11.5-14.5) 16.3 % (11.5-14.5) Platelet Count 158 x10^3/uL (140-400) 153 x10^3/uL (140-400) Neutrophils (%) (Auto) 67 % (31-73) 67 % (31-73) Lymphocytes (%) (Auto) 20 % (24-48) 20 % (24-48) Monocytes (%) (Auto) 11 % (0-9) 10 % (0-9) Eosinophils (%) (Auto) 2 % (0-3) 3 % (0-3) Basophils (%) (Auto) 0 % (0-3) 0 % (0-3) Neutrophils # (Auto) 3.6 x10^3/uL (1.8-7.7) 3.5 x10^3/uL (1.8-7.7) Lymphocytes # (Auto) 1.1 x10^3/uL (1.0-4.8) 1.0 x10^3/uL (1.0-4.8) Monocytes # (Auto) 0.6 x10^3/uL (0.0-1.1) 0.5 x10^3/uL (0.0-1.1) Eosinophils # (Auto) 0.1 x10^3/uL (0.0-0.7) 0.1 x10^3/uL (0.0-0.7) Basophils # (Auto) 0.0 x10^3/uL (0.0-0.2) 0.0 x10^3/uL (0.0-0.2) Platelet Estimate Adequate (ADEQUATE) Hypochromasia Present Anisocytosis Present Ovalocytes Present Prothrombin Time 13.3 SEC (11.7-14.0) Prothromb Time International Ratio 1.0 (0.8-1.1) Activated Partial Thromboplast Time 31 SEC (24-38) Sodium Level 142 mmol/L (136-145) Potassium Level 4.2 mmol/L (3.5-5.1) Chloride Level 109 mmol/L (98-107) Carbon Dioxide Level 24 mmol/L (21-32) Anion Gap 9 (6-14) Blood Urea Nitrogen 26 mg/dL (8-26) Creatinine 1.4 mg/dL (0.7-1.3) Estimated GFR (Cockcroft-Gault) 58.6 BUN/Creatinine Ratio 19 (6-20) Glucose Level 113 mg/dL (70-99) Calcium Level 8.6 mg/dL (8.5-10.1) Total Bilirubin 0.5 mg/dL (0.2-1.0) Aspartate Amino Transf (AST/SGOT) 24 U/L (15-37) Alanine Aminotransferase (ALT/SGPT) 17 U/L (16-63) Alkaline Phosphatase 78 U/L (46-116) Total Protein 6.8 g/dL (6.4-8.2) Albumin 3.3 g/dL (3.4-5.0) Albumin/Globulin Ratio 0.9 (1.0-1.7) Lipase 159 U/L (73-393) Urine Collection Type Unknown Urine Color Yellow Urine Clarity Clear Urine pH 6.5 Urine Specific [place] 1.025 Urine Protein Negative mg/dL (NEG-TRACE) Urine Glucose (UA) Negative mg/dL (NEG) Urine Ketones (Stick) Negative mg/dL (NEG) Urine Blood Negative (NEG) Urine Nitrite Negative (NEG) Urine Bilirubin Negative (NEG) Urine Urobilinogen Dipstick 0.2 mg/dL (0.2 mg/dL) Urine Leukocyte Esterase Negative (NEG) Urine RBC 0 /HPF (0-2) Urine WBC Occ /HPF (0-4) Urine Squamous Epithelial Cells Occ /LPF Urine Bacteria 0 /HPF (0-FEW) Iron Level 40 ug/dL (65-175) Total Iron Binding Capacity 221 ug/dL (250-450) Iron Saturation 18 % (15-34) Test 05/25/19 22:00 05/26/19 04:00 White Blood Count 6.6 x10^3/uL (4.0-11.0) 5.3 x10^3/uL (4.0-11.0) Red Blood Count 4.81 x10^6/uL (4.30-5.70) 4.22 x10^6/uL (4.30-5.70) Hemoglobin 10.9 g/dL (13.0-17.5) 9.7 g/dL (13.0-17.5) Hematocrit 33.9 % (39.0-53.0) 29.7 % (39.0-53.0) Mean Corpuscular Volume 71 fL (79-100) 70 fL (79-100) Mean Corpuscular Hemoglobin 23 pg (25-35) 23 pg (25-35) Mean Corpuscular Hemoglobin Concent 32 g/dL (31-37) 33 g/dL (31-37) Red Cell Distribution Width 16.6 % (11.5-14.5) 16.3 % (11.5-14.5) Platelet Count 173 x10^3/uL (140-400) 146 x10^3/uL (140-400) Neutrophils (%) (Auto) 65 % (31-73) 63 % (31-73) Lymphocytes (%) (Auto) 22 % (24-48) 23 % (24-48) Monocytes (%) (Auto) 10 % (0-9) 11 % (0-9) Eosinophils (%) (Auto) 3 % (0-3) 3 % (0-3) Basophils (%) (Auto) 1 % (0-3) 0 % (0-3) Neutrophils # (Auto) 4.3 x10^3/uL (1.8-7.7) 3.3 x10^3/uL (1.8-7.7) Lymphocytes # (Auto) 1.4 x10^3/uL (1.0-4.8) 1.2 x10^3/uL (1.0-4.8) Monocytes # (Auto) 0.7 x10^3/uL (0.0-1.1) 0.6 x10^3/uL (0.0-1.1) Eosinophils # (Auto) 0.2 x10^3/uL (0.0-0.7) 0.2 x10^3/uL (0.0-0.7) Basophils # (Auto) 0.0 x10^3/uL (0.0-0.2) 0.0 x10^3/uL (0.0-0.2) Sodium Level 145 mmol/L (136-145) Potassium Level 4.3 mmol/L (3.5-5.1) Chloride Level 111 mmol/L (98-107) Carbon Dioxide Level 28 mmol/L (21-32) Anion Gap 6 (6-14) Blood Urea Nitrogen 22 mg/dL (8-26) Creatinine 1.3 mg/dL (0.7-1.3) Estimated GFR (Cockcroft-Gault) 63.8 BUN/Creatinine Ratio 17 (6-20) Glucose Level 105 mg/dL (70-99) Calcium Level 8.4 mg/dL (8.5-10.1) Total Bilirubin 0.6 mg/dL (0.2-1.0) Aspartate Amino Transf (AST/SGOT) 21 U/L (15-37) Alanine Aminotransferase (ALT/SGPT) 24 U/L (16-63) Alkaline Phosphatase 74 U/L (46-116) Total Protein 6.4 g/dL (6.4-8.2) Albumin 3.1 g/dL (3.4-5.0) Albumin/Globulin Ratio 0.9 (1.0-1.7) Laboratory Tests Test 05/25/19 22:00 05/26/19 04:00 White Blood Count 6.6 x10^3/uL (4.0-11.0) 5.3 x10^3/uL (4.0-11.0) Red Blood Count 4.81 x10^6/uL (4.30-5.70) 4.22 x10^6/uL (4.30-5.70) Hemoglobin 10.9 g/dL (13.0-17.5) 9.7 g/dL (13.0-17.5) Hematocrit 33.9 % (39.0-53.0) 29.7 % (39.0-53.0) Mean Corpuscular Volume 71 fL (79-100) 70 fL (79-100) Mean Corpuscular Hemoglobin 23 pg (25-35) 23 pg (25-35) Mean Corpuscular Hemoglobin Concent 32 g/dL (31-37) 33 g/dL (31-37) Red Cell Distribution Width 16.6 % (11.5-14.5) 16.3 % (11.5-14.5) Platelet Count 173 x10^3/uL (140-400) 146 x10^3/uL (140-400) Neutrophils (%) (Auto) 65 % (31-73) 63 % (31-73) Lymphocytes (%) (Auto) 22 % (24-48) 23 % (24-48) Monocytes (%) (Auto) 10 % (0-9) 11 % (0-9) Eosinophils (%) (Auto) 3 % (0-3) 3 % (0-3) Basophils (%) (Auto) 1 % (0-3) 0 % (0-3) Neutrophils # (Auto) 4.3 x10^3/uL (1.8-7.7) 3.3 x10^3/uL (1.8-7.7) Lymphocytes # (Auto) 1.4 x10^3/uL (1.0-4.8) 1.2 x10^3/uL (1.0-4.8) Monocytes # (Auto) 0.7 x10^3/uL (0.0-1.1) 0.6 x10^3/uL (0.0-1.1) Eosinophils # (Auto) 0.2 x10^3/uL (0.0-0.7) 0.2 x10^3/uL (0.0-0.7) Basophils # (Auto) 0.0 x10^3/uL (0.0-0.2) 0.0 x10^3/uL (0.0-0.2) Sodium Level 145 mmol/L (136-145) Potassium Level 4.3 mmol/L (3.5-5.1) Chloride Level 111 mmol/L (98-107) Carbon Dioxide Level 28 mmol/L (21-32) Anion Gap 6 (6-14) Blood Urea Nitrogen 22 mg/dL (8-26) Creatinine 1.3 mg/dL (0.7-1.3) Estimated GFR (Cockcroft-Gault) 63.8 BUN/Creatinine Ratio 17 (6-20) Glucose Level 105 mg/dL (70-99) Calcium Level 8.4 mg/dL (8.5-10.1) Total Bilirubin 0.6 mg/dL (0.2-1.0) Aspartate Amino Transf (AST/SGOT) 21 U/L (15-37) Alanine Aminotransferase (ALT/SGPT) 24 U/L (16-63) Alkaline Phosphatase 74 U/L (46-116) Total Protein 6.4 g/dL (6.4-8.2) Albumin 3.1 g/dL (3.4-5.0) Albumin/Globulin Ratio 0.9 (1.0-1.7) Assessment/Plan Assessment/Plan 1. GI bleeding. Patient underwent upper GI endoscopy and colonoscopy earlier today. He was found to have gastritis and diverticulosis. Polyp was removed as well. GI team following. 2. Atrial fibrillation, most probably permanent based on history. This was apparently diagnosed 5 years ago at [facility]. He does not have any regular cardiology follow-up. He was apparently treated with eliquis few years ago but was stopped since this was proving expensive to him. He is currently on prasugrel. Since this is ineffective for stroke prophylaxis, we will stop this. Patient does not want Coumadin. The importance of stroke prophylaxis was discussed in detail. He stated that he would rather take eliquis - will resume this when okay from GI standpoint. If he has any further GI bleeding, we will consider left atrial appendage closure procedure. 3. Hypertension: Controlled 4. Hyperlipidemia: Statins therapy Thank you for your consultation INES HARTMANN MD May 26, 2019 14:59
--- NOTE | 2019-05-26 15:16 | DS ---
DATE OF DISCHARGE: 05/26/2019 ADMISSION DIAGNOSIS: Rectal bleeding. DISCHARGE DIAGNOSIS: Resolving rectal bleeding, suspect diverticular bleed. CONSULTS: GI. PROCEDURES: EGD and colonoscopy. HOSPITAL COURSE: The patient is a pleasant 83-year-old male who presented with rectal bleeding. He was admitted. We consulted GI was taken for EGD and colonoscopy this morning, which I was present for both of them. No obvious bleeding was noted. We did take a biopsy of colon polyps. There was a lot of diverticulosis. We suspect the blood through on of the old diverticula. Clinically, he is doing great. We are going to discharge to home. DISPOSITION: Home. ACTIVITY: As tolerated. DIET: Low sodium. MEDICATIONS: Please see MRAD. TOTAL TIME: 34 minutes. VERA WARREN DO DR: JAMIR/farzaneh JOB#: [id number] / [id number]
--- NOTE | 2019-05-29 14:06 | PATHOLOGY ---
[facility] Accession Number: [id number] . 01 Material submitted: . rectum - RECTAL POLYP BIOPSY . 01 Clinical history: . Pre-OP DX: Anemia Post-OP DX: Polyp . 02 Diagnosis: Colorectal biopsy, rectal polyp: - Tubular adenoma. (M:[facility] 05/29/2019) P/05/29/2019 . 02 Comment: There is no high-grade dysplasia or evidence of malignancy. ([facility] 05/29/2019) . 02 Electronically signed: . Daniel Winkler MD, Pathologist NPI- [id number] . 01 Gross description: . Received in formalin labeled "Luis Lowery, rectal polyp BX," is a single segment of hayward soft tissue measuring 0.5 cm in maximum dimension. The specimen is entirely submitted in cassette A1. ([facility]; 05/26/2019) TOB/TOB . 02 Pathologist provided ICD-10: D12.8 . 02 CPT . 705310 Specimen Comment: A courtesy copy of this report has been sent to Specimen Comment: [phone], , , . Specimen Comment: Report sent to ,DR FOREMAN,DR HADDAD / DR ALEJANDRA Performed at: 01 [facility] [address], [place] [id number] MD Steve Vasquez MD Phone: [phone] Performed at: 02 [facility] [address] [place], [place] [id number] MD Daniel Winkler MD Phone: [phone]
== END 2019-05-26 15:17 | disposition home or self-care (01) | DRG 378 ==
LOC: ER 08:28 → ED HOLD 10:51 → 2 NORTH 14:36
PROVIDERS: ADMIT Family Medicine; ATTEND Family Medicine
PROC: 0DJ08ZZ Inspection of Upper Intestinal Tract, Via Natural or Artificial Opening Endoscopic (ICD-10-PCS; principal; 2019-05-26 10:30)
PROC: 0DBP8ZX Excision of Rectum, Via Natural or Artificial Opening Endoscopic, Diagnostic (ICD-10-PCS; 2019-05-26 10:30)
DX: K57.31 Diverticulosis of large intestine without perforation or abscess with bleeding (principal); D62 Acute posthemorrhagic anemia; K29.71 Gastritis, unspecified, with bleeding; C61 Malignant neoplasm of prostate; D50.9 Iron deficiency anemia, unspecified; E66.01 Morbid (severe) obesity due to excess calories; E78.00 Pure hypercholesterolemia, unspecified; E78.5 Hyperlipidemia, unspecified; I10 Essential (primary) hypertension; I48.91 Unspecified atrial fibrillation; K43.9 Ventral hernia without obstruction or gangrene; K63.5 Polyp of colon; Z96.649 Presence of unspecified artificial hip joint; K62.1 Rectal polyp; Z96.659 Presence of unspecified artificial knee joint; K64.8 Other hemorrhoids; K80.20 Calculus of gallbladder without cholecystitis without obstruction; N20.0 Calculus of kidney; R13.10 Dysphagia, unspecified; Z82.49 Family history of ischemic heart disease and other diseases of the circulatory system; Z85.46 Personal history of malignant neoplasm of prostate; Z68.37 Body mass index [BMI] 37.0-37.9, adult
CPT/HCPCS: 36415; 43235; 45380; 74177; 80053; 81001; 82274; 83540; 83550; 83690; 85025; 85610; 85730; 86850; 86900; 86901; 88305; 96365; 96366; 96376; C9113; J2001; J2704; J7120; Q9967; 99285-25; G0378

== ENCOUNTER 2019-06-27 07:17 | Day surgery (SDC) | payer OTHER ==
[~2019-06-27 07:17] MED LIST changes: +AMLO5TAB10 PO; +APIX5TAB PO; +ATOR10TA60 PO; +DEXAMETHASONE SOD PHOS 4 MG/ML VIAL ONE; +HYDROmorphone 2 MG/ML VIAL IV PRN; +IV RINGERS,LACTATED 1000ML 1,000 ML IV SCH; +LIDOCAINE 2% PF 5 ML VIAL. ONE; +MORPHINE SULFATE 2 MG/ML VIAL. IV PRN; +ONDANSETRON PF 4 MG/2 ML VIAL. IV PRN; +ONDANSETRON PF 4 MG/2 ML VIAL. ONE; +PRAS10TA9 PO; +PROCHLORPERAZINE 10 MG/2 ML VIAL. IV PRN; +PROPOFOL 20 ML IV ONE; +ROCURONIUM 50 MG/5 ML VIAL. ONE; +fentaNYL PF VIAL 100 MCG/2 ML VIAL IV PRN; +fentaNYL PF VIAL 100 MCG/2 ML VIAL ONE
[2019-06-27] MEDS ORDERED: BUPIVACAINE-EPI 0.5%-1:200000 MPF 30 ML VIAL. INJ ONE (07:30)
[2019-06-27 08:04] LABS: BASO # 0.1 x10^3/uL (0.0-0.2); BASO % 1 % (0-3); EOS # 0.1 x10^3/uL (0.0-0.7); EOS % 3 % (0-3); HEMATOCRIT 30.7 % (39.0-53.0); HEMOGLOBIN 9.8 g/dL (13.0-17.5); LYMPH # 1.1 x10^3/uL (1.0-4.8); LYMPH % 23 % (24-48); MEAN CORPUSCULAR HEMOGLOBIN 22 pg (25-35); MEAN CORPUSCULAR HGB CONC 32 g/dL (31-37); MEAN CORPUSCULAR VOLUME 70 fL (79-100); MONO # 0.6 x10^3/uL (0.0-1.1); MONO % 13 % (0-9); NEUT # 2.9 x10^3/uL (1.8-7.7); NEUT % 61 % (31-73); PLATELET COUNT 183 x10^3/uL (140-400); RED BLOOD COUNT 4.39 x10^6/uL (4.30-5.70); RED CELL DISTRIBUTION WIDTH 16.5 % (11.5-14.5); WHITE BLOOD COUNT 4.8 x10^3/uL (4.0-11.0)
[2019-06-27 08:18] LABS: PROTHROMBIN TIME PATIENT 13.9 SEC (11.7-14.0)
[2019-06-27 08:39] LABS: ALBUMIN 3.4 g/dL (3.4-5.0); CALCIUM 8.8 mg/dL (8.5-10.1); CREATININE 1.2 mg/dL (0.7-1.3); TOTAL BILIRUBIN 0.8 mg/dL (0.2-1.0); TOTAL PROTEIN 6.9 g/dL (6.4-8.2)
[2019-06-27 08:54] LABS: POTASSIUM 4.3 mmol/L (3.5-5.1)
--- NOTE | 2019-06-27 09:09 | HP ---
ADMIT DATE: 06/27/2019 HISTORY OF PRESENT ILLNESS: The patient, I have seen, is found to have a mass of the abdomen. Apparently, he has had this mass for some time and has been examined for thyroid, which is basically not to have surgical treatment at this time and to be observed. He states the mass of the abdomen is getting larger over the last year or so and does give him pain from time to time. He has GI symptoms as far as bowel function is unchanged. He has never been hospitalized for this mass. PAST MEDICAL HISTORY: Shows he has had normal childhood diseases. He has hypertension for which he takes medication and also has atrial fibrillation for which he takes anticoagulants. 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 ALLERGIES: He has no allergies. REVIEW OF SYSTEMS: Negative except for this epigastric mass, which is increasing in size and causes him pain from time to time. FAMILY HISTORY: Noncontributory. SOCIAL HISTORY: He does not drink, smoke or use illicit drugs. PHYSICAL EXAMINATION: GENERAL: Shows an alert male, in no acute distress. He was oriented and alert and cooperative. NECK: Supple and the trachea was in midline and he did not have an obvious goiter that I could palpate. HEAD, EYES, EARS, NOSE AND THROAT. Essentially normal. CHEST: Clear to auscultation. HEART: Had no murmurs, however, we did have irregular beat of about 70 beats per minute that was irregularly irregular. He does have a history of atrial fibrillation. ABDOMEN: Soft. There was no organomegaly noted and no guarding or rebound or any evidence of peritoneal irritation. He did have a nonreducible mass in the epigastrium, which appeared to be about the size of an orange. It was only minimally tender, not excruciating. He did not have an umbilical hernia. EXTREMITIES: Grossly normal. RECTAL: Not done. IMPRESSION: 1. Hypertension. 2. Atrial fibrillation. 3. Hypercholesterolemia. 4. Incarcerated ventral hernia. NARAYAN HARVEY MD DR: DOUGLAS/farzaneh JOB#: [id number] / [id number]
--- NOTE | 2019-06-27 09:11 | PDOC ---
SURGICAL PROGRESS NOTE Subjective Op Note: surgeon..............................................Adam Pre op diag.........................................incarcerated ventral hernia Post o[p diag......................................same Anesthesia.........................................general Procedure..........................................repair incarcerated ventral hernia with mesh Drains...............................................none Fluids................................................see anesthesia sheet Blood loss.........................................15cc Condition...........................................satisfactory Vital Signs Vital Signs Date Time Temp Pulse Resp B/P (MAP) Pulse Ox O2 Delivery O2 Flow Rate FiO2 06/27/19 07:44 97.4 87 18 171/81 98 97.4 Labs Laboratory Tests Test 06/27/19 07:55 White Blood Count 4.8 x10^3/uL (4.0-11.0) Red Blood Count 4.39 x10^6/uL (4.30-5.70) Hemoglobin 9.8 g/dL (13.0-17.5) Hematocrit 30.7 % (39.0-53.0) Mean Corpuscular Volume 70 fL (79-100) Mean Corpuscular Hemoglobin 22 pg (25-35) Mean Corpuscular Hemoglobin Concent 32 g/dL (31-37) Red Cell Distribution Width 16.5 % (11.5-14.5) Platelet Count 183 x10^3/uL (140-400) Neutrophils (%) (Auto) 61 % (31-73) Lymphocytes (%) (Auto) 23 % (24-48) Monocytes (%) (Auto) 13 % (0-9) Eosinophils (%) (Auto) 3 % (0-3) Basophils (%) (Auto) 1 % (0-3) Neutrophils # (Auto) 2.9 x10^3/uL (1.8-7.7) Lymphocytes # (Auto) 1.1 x10^3/uL (1.0-4.8) Monocytes # (Auto) 0.6 x10^3/uL (0.0-1.1) Eosinophils # (Auto) 0.1 x10^3/uL (0.0-0.7) Basophils # (Auto) 0.1 x10^3/uL (0.0-0.2) Prothrombin Time 13.9 SEC (11.7-14.0) Prothromb Time International Ratio 1.1 (0.8-1.1) Sodium Level 146 mmol/L (136-145) Potassium Level 4.3 mmol/L (3.5-5.1) Chloride Level 111 mmol/L (98-107) Carbon Dioxide Level 25 mmol/L (21-32) Anion Gap 10 (6-14) Blood Urea Nitrogen 17 mg/dL (8-26) Creatinine 1.2 mg/dL (0.7-1.3) Estimated GFR (Cockcroft-Gault) 70.0 BUN/Creatinine Ratio 14 (6-20) Glucose Level 104 mg/dL (70-99) Calcium Level 8.8 mg/dL (8.5-10.1) Total Bilirubin 0.8 mg/dL (0.2-1.0) Aspartate Amino Transf (AST/SGOT) 22 U/L (15-37) Alanine Aminotransferase (ALT/SGPT) 13 U/L (16-63) Alkaline Phosphatase 82 U/L (46-116) Total Protein 6.9 g/dL (6.4-8.2) Albumin 3.4 g/dL (3.4-5.0) Albumin/Globulin Ratio 1.0 (1.0-1.7) Laboratory Tests Test 06/27/19 07:55 White Blood Count 4.8 x10^3/uL (4.0-11.0) Red Blood Count 4.39 x10^6/uL (4.30-5.70) Hemoglobin 9.8 g/dL (13.0-17.5) Hematocrit 30.7 % (39.0-53.0) Mean Corpuscular Volume 70 fL (79-100) Mean Corpuscular Hemoglobin 22 pg (25-35) Mean Corpuscular Hemoglobin Concent 32 g/dL (31-37) Red Cell Distribution Width 16.5 % (11.5-14.5) Platelet Count 183 x10^3/uL (140-400) Neutrophils (%) (Auto) 61 % (31-73) Lymphocytes (%) (Auto) 23 % (24-48) Monocytes (%) (Auto) 13 % (0-9) Eosinophils (%) (Auto) 3 % (0-3) Basophils (%) (Auto) 1 % (0-3) Neutrophils # (Auto) 2.9 x10^3/uL (1.8-7.7) Lymphocytes # (Auto) 1.1 x10^3/uL (1.0-4.8) Monocytes # (Auto) 0.6 x10^3/uL (0.0-1.1) Eosinophils # (Auto) 0.1 x10^3/uL (0.0-0.7) Basophils # (Auto) 0.1 x10^3/uL (0.0-0.2) Prothrombin Time 13.9 SEC (11.7-14.0) Prothromb Time International Ratio 1.1 (0.8-1.1) Sodium Level 146 mmol/L (136-145) Potassium Level 4.3 mmol/L (3.5-5.1) Chloride Level 111 mmol/L (98-107) Carbon Dioxide Level 25 mmol/L (21-32) Anion Gap 10 (6-14) Blood Urea Nitrogen 17 mg/dL (8-26) Creatinine 1.2 mg/dL (0.7-1.3) Estimated GFR (Cockcroft-Gault) 70.0 BUN/Creatinine Ratio 14 (6-20) Glucose Level 104 mg/dL (70-99) Calcium Level 8.8 mg/dL (8.5-10.1) Total Bilirubin 0.8 mg/dL (0.2-1.0) Aspartate Amino Transf (AST/SGOT) 22 U/L (15-37) Alanine Aminotransferase (ALT/SGPT) 13 U/L (16-63) Alkaline Phosphatase 82 U/L (46-116) Total Protein 6.9 g/dL (6.4-8.2) Albumin 3.4 g/dL (3.4-5.0) Albumin/Globulin Ratio 1.0 (1.0-1.7) NARAYAN HARVEY MD Jun 27, 2019 09:11
[2019-06-27] MEDS ORDERED: NEOSTIGMINE METHYLSULFATE 5 MG/5 ML SYRINGE. ONE (10:07)
[2019-06-27] MEDS ORDERED: GLYCOPYRROLATE 1 MG/5 ML VIAL. ONE (10:07)
[2019-06-27] MEDS ORDERED: ceFAZolin SODIUM 1 GM VIAL ONE (10:08)
[2019-06-27] MEDS ORDERED: SEVOFLURANE 61 TO 120 MINUTES. IH ONE (10:24)
[2019-06-27] MEDS ORDERED: fentaNYL PF VIAL 100 MCG/2 ML VIAL ONE (10:34)
[2019-06-27 10:43] LABS: ANISOCYTOSIS SLIGHT; PLT ESTIMATE ADEQUATE (ADEQUATE)
--- NOTE | 2019-06-27 10:59 | DISCH ---
DISCHARGE INSTRUCTIONS Condition on Discharge Condition on Discharge: Stable Activity After Discharge Activity Instructions for Disc: Activity as tolerated, Avoid exertion Driving Instructions after Dis: Do not drive today Weight Bearing Status after Di: As tolerated Diet after Discharge Diet after Discharge: Regular Additional Diet Restrictions: diet as pre op Wound Incision Care Other wound/incision instructi: may shower and leave dressing on as long as possible the change dressing qd Follow-Up Follow up with: call and make appointment to see mi in 1 week NARAYAN HARVEY MD Jun 27, 2019 10:58
[2019-06-27] MEDS ORDERED: HYDROcodone/APAP 7.5/325MG 1 TAB TABLET PO ONE (11:15)
[2019-06-27] MEDS ORDERED: HYDR-2765 PO (11:34)
[2019-06-27 12:42] VITALS: BP 197/78
--- NOTE | 2019-06-28 01:19 | OP ---
DATE OF SURGERY: SURGEON: Jose Harvey MD PREOPERATIVE DIAGNOSIS: Incarcerated ventral hernia. POSTOPERATIVE DIAGNOSIS: Incarcerated ventral hernia. ANESTHESIA: General. PROCEDURE: Repair of incarcerated ventral hernia with mesh. TECHNIQUE: Under general anesthesia, the patient was properly prepped and draped in routine fashion. The mass was in the epigastrium about a few centimeters below the xiphoid. As such, an incision was made in the midline over this and carried down through the skin with a 15 blade. Deep in the subcutaneous probably a quarter of an inch to an inch deep there was a mass that could be seen and it appeared fatty in nature and it was yellowish in color. We went around it mostly with Metzenbaum scissors and finger dissection to define it down to the fascia. We used Cronin retractors to keep the tissues away and then slowly went down to the fascia. We divided some of the adherent tissue around it and were able to free up this mass. It appeared to be preperitoneal fat probably. As such, we were able to identify the ring and freed it up from the surrounding tissues and then with some difficulty inverted the mass, which was fatty in nature back into the preperitoneal space. The resultant defect was about 3-4 cm in diameter, even though it was a fairly small mass probably as large as a grapefruit. This having been done, we then placed 88 cm disk of mesh with Seprafilm on the sagittal plane posterior and placed it and laid it flat in the hernia. We pulled it up with the tab. Pulling up with towel clips on either side of the fascia, we then placed interrupted #1 Prolene sutures into this area incorporating both sides of the defect and did this in a transverse fashion, taking the superior or anterior portions of the mesh, so this would be adherent to the anterior abdominal wall. We did this, cut the tap off and then tied the sutures without difficulty. We inspected the area. There was a good closure, tied with mesh under it and we then injected 0.5% Marcaine with epinephrine into the fascia. The subcutaneous was then irrigated with saline and then approximated the deeper structures with 4-0 Vicryl and the skin was closed using the skin stapler. The procedure was now terminated as sterile Tegaderm dressing was applied. The blood loss was probably about 20 mL. Fluids given can be obtained from the anesthesia sheet. No drains were used. CONDITION OF THE PATIENT: Satisfactory as he has returned to the recovery room. JOSE HARVEY MD DR: DOUGLAS/farzaneh JOB#: [id number] / [id number]
== END 2019-06-27 12:44 | disposition home or self-care (01) ==
LOC: SURG 07:17
PROVIDERS: ATTEND Specialist
DX: K43.6 Other and unspecified ventral hernia with obstruction, without gangrene (principal); I10 Essential (primary) hypertension; I48.91 Unspecified atrial fibrillation; E78.00 Pure hypercholesterolemia, unspecified; Z79.01 Long term (current) use of anticoagulants
CPT/HCPCS: 36415; 49561; 49568; 80053; 85025; 85610; J0690; J1100; J2001; J2405; J2704; J2710; J3010; J3490; A7015; C1781; J7120

== ENCOUNTER → 2019-12-07 | Outpatient (CLI) | payer MEDICARE ==
[~2019-12-07] MED LIST changes: -DEXAMETHASONE SOD PHOS 4 MG/ML VIAL ONE; +HYDR-2765 PO; -HYDROmorphone 2 MG/ML VIAL IV PRN; -IV RINGERS,LACTATED 1000ML 1,000 ML IV SCH; -LIDOCAINE 2% PF 5 ML VIAL. ONE; -MORPHINE SULFATE 2 MG/ML VIAL. IV PRN; -ONDANSETRON PF 4 MG/2 ML VIAL. IV PRN; -ONDANSETRON PF 4 MG/2 ML VIAL. ONE; -PROCHLORPERAZINE 10 MG/2 ML VIAL. IV PRN; -PROPOFOL 20 ML IV ONE; -ROCURONIUM 50 MG/5 ML VIAL. ONE; -fentaNYL PF VIAL 100 MCG/2 ML VIAL IV PRN; -fentaNYL PF VIAL 100 MCG/2 ML VIAL ONE
--- NOTE | 2019-12-07 13:37 | CARD ---
MR#: [id number] Date of Study: 12/07/2019 Ordering Physician: CHARLES DUFF, Referring Physician: CHARLES DUFF, Tech: Allie Buitrago APPROVED REPORT EXAM: Two-dimensional and M-mode echocardiogram with Doppler and color Doppler. Other Information Quality : AverageHR: 80bpm INDICATION Atrial Fibrillation RISK FACTORS Hypertension 2D DIMENSIONS RVDd3.2 (2.9-3.5cm)Left Atrium(2D)3.8 (1.6-4.0cm) IVSd1.2 (0.7-1.1cm)Aortic Root(2D)3.6 (2.0-3.7cm) LVDd5.5 (3.9-5.9cm)LVOT Diameter2.3 (1.8-2.4cm) PWd1.2 (0.7-1.1cm)LVDs4.3 (2.5-4.0cm) FS (%) 22.1 %SV65.4 ml LVEF(%)44.1 (>50%) Aortic Valve AoV Peak Eulogio.143.7cm/sAoV VTI25.6cm AO Peak GR.8.3mmHgLVOT Peak Eulogio.61.6cm/s LVOT VTI 11.07cmAO Mean GR.4mmHg SANAM (VMAX)1.19bj1XIG (VTI)1.73cm2 AI P 1/2 Sjzc552rr Mitral Valve MV E Fmzsquxf44.3cm/sMV DECEL [id number] MV E Mean Gr.2mmHgMV HEA63mn MVA (PHT)2.80cm2 TDI E/Lateral E'10.7E/Medial E'13.0 Pulmonary Valve PV Peak Cshuynkj97.9cm/sPV Peak Grad.2mmHg Tricuspid Valve TR P. Klffayig145vt/sRAP [id number] TR Peak Gr.43mmHg Pulmonary Vein D2 Korbavvi04.5cm/s LEFT VENTRICLE The left ventricle is normal size. There is mild concentric left ventricular hypertrophy. The left ve ntricular systolic function is normal and the ejection fraction is within normal range. The Ejection Fraction is 45-50%. There is mild diffuse global hypokinesis. Diastology indeterminate due to atrial fibrillation. RIGHT VENTRICLE The right ventricle is borderline dilated. The right ventricular systolic function is normal. ATRIA The left atrium is moderately dilated. The right atrium is moderately dilated. The interatrial septum is intact with no evidence for an atrial septal defect or patent foramen ovale as noted on 2-D or Do ppler imaging. AORTIC VALVE The aortic valve is normal in structure and function. Doppler and Color Flow revealed mild to moderat e aortic regurgitation. There is no significant aortic valvular stenosis. MITRAL VALVE The mitral valve is normal in structure and function. There is no evidence of mitral valve prolapse. There is no mitral valve stenosis. Mitral valve has a mean gradient of 2.1 mmHg. TRICUSPID VALVE The tricuspid valve is normal in structure and function. Doppler and Color Flow revealed mild tricusp id regurgitation with an estimated PAP of 58 mmHg. There is no tricuspid valve stenosis. PULMONIC VALVE The pulmonic valve is not well visualized. Doppler and Color Flow revealed no pulmonic valvular regur gitation. There is no pulmonic valvular stenosis. GREAT VESSELS The aortic root is normal in size. The ascending aorta is normal in size. The IVC is dilated and korey apses <50% with inspiration. PERICARDIAL EFFUSION There is no evidence of significant pericardial effusion. Critical Notification Critical Value: No <Conclusion> The left ventricular systolic function is normal and the ejection fraction is within normal range. Th e Ejection Fraction is 45-50%. There is mild diffuse global hypokinesis. Doppler and Color Flow revealed mild to moderate aortic regurgitation. Doppler and Color Flow revealed mild tricuspid regurgitation with an estimated PAP of 58 mmHg. Signed by : Charles Duff, Electronically Approved : 12/07/2019 12:10:52
== END | disposition home or self-care (01) ==
LOC: ECHO 10:05
PROVIDERS: ATTEND Internal Medicine Cardiovascular Disease
DX: I08.2 Rheumatic disorders of both aortic and tricuspid valves (principal); I48.91 Unspecified atrial fibrillation
CPT/HCPCS: 93306

== ENCOUNTER → 2021-01-28 | Outpatient (CLI) | payer MEDICARE ==
[~2021-01-28] MED LIST changes: +AMLO-186 PO; -AMLO5TAB10 PO
== END ==
LOC: LAB 09:46
PROVIDERS: ATTEND Ophthalmology
DX: Z01.812 Encounter for preprocedural laboratory examination (principal); Z20.822 Contact with and (suspected) exposure to COVID-19
CPT/HCPCS: U0003; U0005

== ENCOUNTER 2021-01-31 06:46 | Day surgery (SDC) | payer MEDICARE ==
[~2021-01-31 06:46] MED LIST changes: +CIPROFLOXACIN 0.3% OPHTH SOLUTION 5ML BOTTLE. OD ONE; +HYDROmorphone 2 MG/ML VIAL IVP PRN; +IV RINGERS,LACTATED 1000ML 1,000 ML IV SCH; +LIDOCAINE 2% JELLY 6ML IN APPLICATOR. OD ONE; +MORPHINE SULFATE 2 MG/ML VIAL. IVP PRN; +PROCHLORPERAZINE 10 MG/2 ML VIAL. IVP PRN; +PROPARACAINE 0.5% OPHTH SOLUTION 15ML BOTTLE. OD ONE; +fentaNYL PF VIAL 100 MCG/2 ML VIAL IVP PRN
[2021-01-31] MEDS ORDERED: CHONDROIT-SOD-HYALURONATE KIT. ONE (07:15)
[2021-01-31] MEDS ORDERED: NEO/POLYMYX/DEXAMETH OPHTH OINTMENT 3.5GM TUBE. ONE (07:15)
[2021-01-31] MEDS ORDERED: CHONDROITIN-SOD-HYALURONATE 0.5 ML DISP.SYRIN. ONE (07:15)
[2021-01-31] MEDS ORDERED: LIDOCAINE 1%/PHENYLEPH 1.5% PF OPHTH 1 ML VIAL. ONE (07:15)
[2021-01-31] MEDS: PHENYLEPHRINE 10% OPHTH SOLUTION 5ML BOTTLE. OD SCH ×3 (08:00→08:16)
[2021-01-31] MEDS: CYCLOPENTOLATE 1% OPHTH SOLUTION 2ML BOTTLE. OD SCH ×2 (08:01→08:05)
[2021-01-31] MEDS ORDERED: MIDAZOLAM HCL/PF 2 MG/2 ML VIAL. ONE (08:21)
[2021-01-31 09:48] VITALS: BP 170/81
--- NOTE | 2021-01-31 09:58 | OP ---
DATE OF SURGERY: 01/31/2021 PREOPERATIVE DIAGNOSES: 1. 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 2. Cataract of the right eye. SURGEON: Shanda Figueroa MD ANESTHESIA: Topical with monitored anesthesia care. PROCEDURES: 1. [place] Dual blade goniotomy of the right eye. 2. Cataract extraction with posterior chamber intraocular lens implantation of the right eye. DESCRIPTION OF PROCEDURE: The right eye was prepped with Betadine in the usual sterile fashion and draped. A paracentesis was performed followed by instillation of preservative-free phenylephrine admixed with lidocaine and balanced salt solution. A temporal clear corneal incision was made and Viscoat was injected in the anterior chamber. The head and microscope were then repositioned to visualize the anterior chamber angle and the [place] Dual blade was used to perform a nasal goniotomy. The head and microscope were repositioned and Viscoat instilled in the anterior chamber and a capsulorrhexis was performed followed by hydrodissection. The phacoemulsification handpiece was used to remove the nucleus in a modified stop and chop fashion. The I/A handpiece was used to remove the cortex. Viscoelastic was injected in the anterior chamber. An [place] model [id number] was placed into the capsular bag. Balanced salt solution was used to hydrate the corneal wounds and the viscoelastic evacuated with the I/A handpiece. Once no leak was noted, Maxitrol was placed on the eye and the eye shielded and the patient was sent to the recovery room uneventfully. SHANDA FIGUEROA MD DR: SOPHIE/farzaneh JOB#: [id number] / [id number]
== END 2021-01-31 10:22 | disposition home or self-care (01) ==
LOC: SURG 06:46
PROVIDERS: ATTEND Ophthalmology
DX: E11.36 Type 2 diabetes mellitus with diabetic cataract (principal); H25.89 Other age-related cataract; H40.10X1 Unspecified open-angle glaucoma, mild stage; I10 Essential (primary) hypertension; I48.91 Unspecified atrial fibrillation; E78.00 Pure hypercholesterolemia, unspecified; K21.9 Gastro-esophageal reflux disease without esophagitis; E66.9 Obesity, unspecified; M19.90 Unspecified osteoarthritis, unspecified site; F17.210 Nicotine dependence, cigarettes, uncomplicated; Z79.899 Other long term (current) drug therapy; Z98.890 Other specified postprocedural states
CPT/HCPCS: 65820; 66984; C1780; J0171; J0690; J1580; J2250; J3490

== ENCOUNTER 2021-02-07 07:52 | Day surgery (SDC) | payer MEDICARE ==
[~2021-02-07] VITALS: Ht 172.7 cm; Wt 111.6 kg
[~2021-02-07 07:52] MED LIST changes: +CHONDROIT-SOD-HYALURONATE KIT. ONE; +CHONDROITIN-SOD-HYALURONATE 0.5 ML DISP.SYRIN. ONE; -CIPROFLOXACIN 0.3% OPHTH SOLUTION 5ML BOTTLE. OD ONE; +CIPROFLOXACIN 0.3% OPHTH SOLUTION 5ML BOTTLE. OS ONE; -HYDROmorphone 2 MG/ML VIAL IVP PRN; +LIDOCAINE 1%/PHENYLEPH 1.5% PF OPHTH 1 ML VIAL. ONE; -LIDOCAINE 2% JELLY 6ML IN APPLICATOR. OD ONE; +LIDOCAINE 2% JELLY 6ML IN APPLICATOR. OS ONE; -MORPHINE SULFATE 2 MG/ML VIAL. IVP PRN; +NEO/POLYMYX/DEXAMETH OPHTH OINTMENT 3.5GM TUBE. ONE; -PROCHLORPERAZINE 10 MG/2 ML VIAL. IVP PRN; -PROPARACAINE 0.5% OPHTH SOLUTION 15ML BOTTLE. OD ONE; +PROPARACAINE 0.5% OPHTH SOLUTION 15ML BOTTLE. OS ONE; -fentaNYL PF VIAL 100 MCG/2 ML VIAL IVP PRN
[2021-02-07] MEDS: CYCLOPENTOLATE 1% OPHTH SOLUTION 2ML BOTTLE. OS SCH ×3 (08:59→09:10)
[2021-02-07] MEDS: PHENYLEPHRINE 10% OPHTH SOLUTION 5ML BOTTLE. OS SCH ×3 (08:59→09:10)
[2021-02-07] MEDS ORDERED: MIDAZOLAM HCL/PF 2 MG/2 ML VIAL. ONE (09:29)
[2021-02-07 11:15] VITALS: BP 150/80
--- NOTE | 2021-02-07 11:26 | OP ---
DATE OF SURGERY: 02/07/2021 PREOPERATIVE DIAGNOSES: 1. Open-angle glaucoma of the left eye. 2. Cataract of the left eye. PROCEDURES: 1. [place] dual blade goniotomy of the left eye. 2. Cataract extraction with posterior chamber intraocular lens implantation of the left eye. SURGEON: Henry Pritchard MD ANESTHESIA: Topical with monitored anesthesia care. DESCRIPTION OF PROCEDURE: The left eye was prepped with Betadine in the usual sterile fashion and draped. A paracentesis was performed followed by instillation of preservative-free lidocaine admixed with phenylephrine and balanced salt solution. The temporal clear corneal incision was made and Viscoat was injected in the anterior chamber. A capsulorrhexis was performed, followed by hydrodissection. The phacoemulsification handpiece was used to remove the nucleus in a modified stop and chop fashion. The I/A handpiece was used to remove the remainder of the cortex. Viscoelastic was injected in the capsular bag, and an Ron model [id number] with a power of 22.5 diopters was placed into the capsular bag. Balanced salt solution was used to hydrate the corneal wounds and the viscoelastic evacuated with the I/A handpiece. Maxitrol was placed on the eye and the eye shielded and the patient was sent to the recovery room uneventfully. BEBE YAP: Dusty TID: [id number]
== END 2021-02-07 11:15 | disposition home or self-care (01) ==
LOC: SURG 07:52
PROVIDERS: ATTEND Ophthalmology
DX: E11.36 Type 2 diabetes mellitus with diabetic cataract (principal); H25.89 Other age-related cataract; H40.10X0 Unspecified open-angle glaucoma, stage unspecified; I10 Essential (primary) hypertension; I48.91 Unspecified atrial fibrillation; E78.00 Pure hypercholesterolemia, unspecified; K21.9 Gastro-esophageal reflux disease without esophagitis; E66.9 Obesity, unspecified; M19.90 Unspecified osteoarthritis, unspecified site; F17.210 Nicotine dependence, cigarettes, uncomplicated; Z79.899 Other long term (current) drug therapy; Z98.890 Other specified postprocedural states
CPT/HCPCS: 66984; J0171; J0690; J1580; J2250; J3490; V2632

== ENCOUNTER 2021-03-14 15:23 | Emergency (ER) | payer MEDICARE ==
[~2021-03-14] VITALS: Ht 172.7 cm; Wt 110.9 kg
[~2021-03-14 15:23] MED LIST changes: -CHONDROIT-SOD-HYALURONATE KIT. ONE; -CHONDROITIN-SOD-HYALURONATE 0.5 ML DISP.SYRIN. ONE; -CIPROFLOXACIN 0.3% OPHTH SOLUTION 5ML BOTTLE. OS ONE; -IV RINGERS,LACTATED 1000ML 1,000 ML IV SCH; -LIDOCAINE 1%/PHENYLEPH 1.5% PF OPHTH 1 ML VIAL. ONE; -LIDOCAINE 2% JELLY 6ML IN APPLICATOR. OS ONE; -NEO/POLYMYX/DEXAMETH OPHTH OINTMENT 3.5GM TUBE. ONE; -PROPARACAINE 0.5% OPHTH SOLUTION 15ML BOTTLE. OS ONE
[2021-03-14 15:25] VITALS: BP 126/75
--- NOTE | 2021-03-14 18:00 | RAD ---
EXAM: XR KNEE 3 VIEWS_RT 03/14/2021 5:44 PM CLINICAL INDICATION: Right knee pain after injury 2 weeks ago COMPARISON: None TECHNIQUE: 3 views of the right FINDINGS: A right total knee prosthesis in expected alignment. No periprosthetic lucency or fracture . No joint effusion. There is soft tissue swelling medially. IMPRESSION: 1. Right total knee prosthesis. No periprosthetic fracture. 2. Medial soft tissue swelling. Electronically signed by: Sherri Wade MD (03/14/2021 5:57 PM) [id number]
--- NOTE | 2021-03-14 18:17 | ED.ADGEN ---
Past Medical History Past Medical History: A-Fib, Hypertension Additional Past Medical Histor: PROSTATE CANCER Past Surgical History: Hip Replacement, Knee Replacement Additional Past Surgical Histo: PROSTATECTOMY Smoking Status: Never Smoker Alcohol Use: None Drug Use: None General Adult EDM: Chief Complaint: KNEE INJURY HPI: HPI: Patient is a 85 year old AA male, accompanied by his , who presents emergency department with complaints of pain, swelling, and a tender bump just below his medial right knee for the last 2 weeks. Patient states he had a stone fall against his right knee 2 weeks ago when he was working in his yard. He denies any decreased range of motion of the right knee. He denies any numbness, tingling, weakness, or decreased sensation. He reports that the pain has been intermittent, sharp, and aching. He currently rates pain a 5 out of 10 on the pain scale however if the area is touched the pain increases to a 10 out of 10. Review of Systems: Review of Systems: Complete ROS is negative unless otherwise noted in HPI. Allergies: Allergies: Allergies Coded Allergies Type Severity Reaction Last Updated Verified No Known Drug Allergies 02/07/21 No Physical Exam: PE: See Above Constitutional: Well developed, well nourished, no acute distress, non-toxic appearance. [] HENT: Normocephalic, atraumatic, bilateral external ears normal, nose normal. [] Eyes: PERRLA, EOMI, conjunctiva normal, no discharge. [] Neck: Normal range of motion, no stridor. [] Cardiovascular:Heart rate regular rhythm Lungs & Thorax: Respirations even and unlabored, no retractions, no respiratory distress Skin: Warm, dry, no erythema, no rash; 2 cm diameter swollen area to proximal medial right lower extremity consistent with hematoma. [] Extremities: Right knee: Nontender, no obvious deformity, no cyanosis, ROM intact, no edema; RLE 2+ pedal pulse, 1+ edema, there is tenderness just below the knee medially, no crepitus, no obvious deformity. [] Neurologic: Alert and oriented X 3, normal motor, normal sensory, no focal deficits noted. [] Psychologic: Affect normal, judgement normal, mood normal. [] Current Patient Data: Vital Signs: Vital Signs Date Time Temp Pulse Resp B/P (MAP) Pulse Ox O2 Delivery O2 Flow Rate FiO2 03/14/21 15:25 98.3 74 16 126/75 (92) 97 Room Air 98.3 EKG: EKG: [] Heart Score: C/O Chest Pain: No Risk Factors: Risk Factors: DM, Current or recent (<one month) smoker, HTN, HLP, family history of CAD, obesity. Risk Scores: Score 0 - 3: 2.5% MACE over next 6 weeks - Discharge Home Score 4 - 6: 20.3% MACE over next 6 weeks - Admit for Clinical Observation Score 7 - 10: 72.7% MACE over next 6 weeks - Early Invasive Strategies Radiology/Procedures: Radiology/Procedures: PROCEDURE: KNEE RIGHT 3V EXAM: XR KNEE 3 VIEWS_RT 03/14/2021 5:44 PM CLINICAL INDICATION: Right knee pain after injury 2 weeks ago COMPARISON: None TECHNIQUE: 3 views of the right FINDINGS: A right total knee prosthesis in expected alignment. No periprosthe tic lucency or fracture. No joint effusion. There is soft tissue swelling medially. IMPRESSION: 1. Right total knee prosthesis. No periprosthetic fracture. 2. Medial soft tissue swelling. Electronically signed by: Sherri Wade MD (03/14/2021 5:57 PM) [id number][] Course & Med Decision Making: Course & Med Decision Making Pertinent Labs and Imaging studies reviewed. (See chart for details) [] Dragon Disclaimer: Charlette Disclaimer: This electronic medical record was generated, in whole or in part, using a voice recognition dictation system. Departure Departure Impression: Primary Impression: Contusion of right lower leg, initial encounter Additional Impression: Pain in right lower leg Disposition: 01 HOME / SELF CARE / HOMELESS Condition: STABLE Referrals: YA FOREMAN MD (PCP) SUSAN DONALD DO Patient Instructions: Contusion, [id number] Additional Instructions: You may take Tylenol or ibuprofen as needed for your pain. I recommend that you purchase a compression knee sleeve, apply ice, and elevate the affected extremity as instructed. Follow-up with your primary care doctor next week for reevaluation, return to the ER if your symptoms worsen or fever develops. Problem Qualifiers LIBERTAD TORRES [employer] DEVELOPER March 14, 2021 18:17
== END 2021-03-14 18:58 | disposition home or self-care (01) ==
LOC: ER 15:23
DX: S80.01XA Contusion of right knee, initial encounter (principal); I48.91 Unspecified atrial fibrillation; I10 Essential (primary) hypertension; W18.39XA Other fall on same level, initial encounter; Y93.89 Activity, other specified; Y92.096 Garden or yard of other non-institutional residence as the place of occurrence of the external cause; Y99.8 Other external cause status
CPT/HCPCS: 73562; 99283